=== PATIENT | male | born 1930 | race Caucasian/White ===

== ENCOUNTER 2016-12-16 11:20 | Inpatient (IN) | payer OTHER ==
[~2016-12-16] VITALS: Ht 180.3 cm; Wt 68.0 kg
[~2016-12-16 11:20] MED LIST: ALBU8.5H3 INH; ASPI81TA3 PO; BUME1TAB18 PO; CARV3.1260 PO; CLOP75TA4 PO; FURO-110 PO; LOSA25TA5 PO; METF500T4 PO; PANT40TA3 PO; POTA10TA18 PO; PRAV80TA27 PO
[2016-12-16] MEDS ORDERED: SOD CHLORIDE 0.9% 1,000 ML IV STA (11:37)
--- NOTE | 2016-12-16 12:00 | RADRPT ---
PROCEDURE: XR Chest. CLINICAL INDICATION: Syncope. Dyspnea. TECHNIQUE: Single frontal chest x-ray. COMPARISON: 06/07/2016 FINDINGS: The lungs are clear of acute infiltrates, edema, effusions, or masses. Calcific atherosclerosis of t he aorta is present.. The cardiomediastinal silhouette is unremarkable. The osseous structures are intact. IMPRESSION: No acute cardiopulmonary disease. RPTAT: QQ .Cipriano Holland MD, MD Date Time Electronically viewed and signed by .Cipriano Holland MD, on 12/16/2016 11:59 .L/
[2016-12-16 12:33] LABS: ADD SCAN DIFF NO
[2016-12-16 12:35] LABS: BASOPHILS % 0.3 % (0.0-2.0); EOSINOPHILS # 0.2 10^3/ul (0.0-0.5); EOSINOPHILS % 1.5 % (0.0-7.0); HEMATOCRIT 32.6 % (42.0-52.0); HEMOGLOBIN 9.8 g/dl (14.0-18.0); LYMPHOCYTES % 9.1 % (15.0-51.0); MEAN CORPUSCULAR HEMOGLOBIN 23.5 pg (29.0-33.0); MEAN CORPUSCULAR HGB CONC 30.1 g/dl (32.0-37.0); MEAN CORPUSCULAR VOLUME 78.2 fl (82.0-101.0); MONOCYTES % 9.1 % (0.0-11.0); NEUTROPHILS % 79.6 % (39.0-77.0); PLATELET COUNT 260 10^3/UL (140-415); RED BLOOD COUNT 4.17 10^6/ul (4.70-6.10); RED CELL DISTRIBUTION WIDTH 17.2 % (11.5-14.5); WHITE BLOOD COUNT 11.3 10^3/ul (4.8-10.8)
[2016-12-16 12:36] LABS: ADD UMIC NO; URINE BILIRUBIN (Dip) NEGATIVE (NEGATIVE); URINE BLOOD (Dip) NEGATIVE (NEGATIVE); URINE COLOR YELLOW (YELLOW); URINE GLUCOSE (Dip) NEGATIVE (NEGATIVE); URINE KETONES (Dip) NEGATIVE (NEGATIVE); URINE LEUKOCYTE ESTERASE (Dip) NEGATIVE (NEGATIVE); URINE NITRITE (Dip) NEGATIVE (NEGATIVE); URINE TOTAL PROTEIN (Dip) NEGATIVE (NEGATIVE); URINE UROBILINOGEN (Dip) 0.2 E.U./dL (0.1-1.0)
[2016-12-16 12:52] LABS: INR 1.03; PROTIME 13.5 Sec (12.2-14.2); PT RATIO 1.1
[2016-12-16 12:53] LABS: PARTIAL THROMBOPLASTIN TIME 25.7 Sec (25.0-35.0)
[2016-12-16 13:14] LABS: ANION GAP 15 (8-16); BLOOD UREA NITROGEN 40 mg/dl (7-20); CALCIUM 9.4 mg/dl (8.4-10.2); CARBON DIOXIDE 27 mmol/L (21-31); CHLORIDE 105 mmol/L (97-110); GLUCOSE 124 mg/dl (70-220); POTASSIUM 4.4 mmol/L (3.5-5.1); SODIUM 143 mmol/L (135-144)
--- NOTE | 2016-12-16 13:18 | RADRPT ---
PROCEDURE: CT Brain without contrast. CLINICAL INDICATION: Syncope TECHNIQUE: Routine CT scan of the brain was performed on a high resolution multi detector scanner without intravenous contrast. One or more of the following dose reduction techniques were used: Auto mated exposure control; Adjustment of the mA and/or kV according to patient size; Use of iterative r econstruction technique. CTDI = 43 mGy. DLP = 720 mGy-cm. COMPARISON: No prior relevant examinations are available for comparison. FINDINGS: Hemorrhage: No evidence of intracranial hemorrhage. Acute ischemic changes: No evidence of acute ischemic changes. Mass effect/Midline shift: None. Parenchymal volume: Moderate central parenchymal volume loss is evident. Ventricular system: Concordant with parenchymal volume. Chronic changes: 4 mm low attenuation focus involving the left internal capsule likely representing a small chronic lacunar infarct. There are numerous and confluent areas of significant low attenuat ion change within the supratentorial white matter most compatible with severe chronic microvascular ischemic changes. Atherosclerotic calcifications of the cavernous portions of both internal carotid arteries are prese nt. Extracranial soft tissues: Unremarkable. Calvarium: No fractures. Paranasal sinuses: Visualized paranasal sinuses are clear. Mastoid air cells: Visualized mastoid air cells are clear. IMPRESSION: No acute intracranial abnormalities. Severe chronic-appearing microvascular ischemic changes of the supratentorial white matter with smal l chronic appearing lacunar infarct of the left basal ganglia. RPTAT: AADD .Dominick Mednez MD, Date Time Electronically viewed and signed by .Dominick Mendez MD, MD on 12/16/2016 13:17 .B/
[2016-12-16 13:27] LABS: TROPONIN-I < 0.012 ng/ml (0.00-0.12)
--- NOTE | 2016-12-16 13:35 | RADRPT ---
PROCEDURE: CT scan of the cervical spine without intravenous contrast. CLINICAL INDICATION: History of multiple falls, neck pain, anticoagulated. TECHNIQUE: Routine CT scan of the cervical spine was performed without intravenous contrast on a h igh-resolution multi detector scanner. Vertebral level counting reference is made to the craniocervi dominic junction. Images and image data are available for procedural planning and localization purposes. One or more of the following dose reduction techniques were used: Automated exposure control; Adjus tment of the mA and/or kV according to patient size; Use of iterative reconstruction technique. CTDI = 22 mGy. DLP = 129 mGy-cm. COMPARISON: None. FINDINGS: Craniocervical junction: Within normal limits. Alignment: Mild straightening of the cervical lordosis. Cervical vertebral bodies: Height is maintained. No significant endplate changes are seen. Increase d attenuation of the ventral epidural space at the C1-C2 level measuring 5 mm AP and 22 cm cc appear s to be a small epidural hematoma which does not produce any significant mass effect on the central canal. No prevertebral soft tissue swelling. Evaluation of the individual levels demonstrates: C2-C3: Mild loss of disk height with 1 mm central disk protrusion. Asymmetric uncovertebral and fac et hypertrophy are present more prominent on the left. Central canal is patent. Both neural forame n are patent. C3-C4: Moderate loss of disk height with 1 mm broad-based dorsal disk osteophyte. Asymmetric uncove rtebral and facet hypertrophy are present more prominent on the left. Central canal and right neura l foramen are patent. Mild stenosis of the left neural foramen. C4-C5: Moderate loss of disk height with 1 mm dorsal disk osteophyte complex. Asymmetric left-sided uncovertebral and facet hypertrophy. Central canal and right neural foramen are patent. Moderate stenosis of the left neural foramen. C5-C6: Severe loss of disk height with less than 1 mm broad-based dorsal disk osteophyte complex. M ild left-sided asymmetric uncovertebral and facet hypertrophy. Central canal and right neural concetta en are patent. Minimal narrowing of the left neural foramen. C6-C7: Moderate loss of disk height with 1 mm dorsal disk osteophyte complex. Asymmetric left-sided uncovertebral and facet hypertrophy. Central canal and right neural foramen are patent. Minimal n arrowing of the left neural foramen. Paraspinous musculature: Within normal limits. Visualized cervical soft tissues: Mild atherosclerotic changes of both internal carotid arteries. IMPRESSION: No evidence of displaced cervical fracture or vertebral body subluxation. Thickening of the ventral epidural space at the C1-C2 level of increased density compatible with a s mall epidural hematoma measuring 5 mm AP by 22 mm cc. There is no definite underlying fracture seen . This does not produce any significant mass effect on the spinal cord. Chronic-appearing multilevel cervical spondylosis without significant central canal or neural forami nal stenoses. Results were discussed with Dr. Blanco by telephone at 1330 hours on 12/16/[address] Dominick krugre RPTAT: AADD .Dominick Mendez MD, MD Date Time Electronically viewed and signed by .Dominick Mendez MD, on 12/16/2016 13:35 .B/
--- NOTE | 2016-12-16 13:42 | RADRPT ---
PROCEDURE: XR Foot. CLINICAL INDICATION: Right foot pain TECHNIQUE: AP, lateral, and oblique views of the right foot are available for review. COMPARISON: None available FINDINGS: The osseous structures, articular spaces, and surrounding soft tissues are intact. No acute fractur e or dislocation is seen. No radiopaque foreign body is identified. Bony mineralization is normal. Calcific atherosclerosis of the posterior tibial artery is present. IMPRESSION: 1. Unremarkable right foot x-ray series. RPTAT: QQ .Cipriano Holland MD, Date Time Electronically viewed and signed by .Cipriano Holland MD, on 12/16/2016 13:41 .L/
--- NOTE | 2016-12-16 13:48 | RADRPT ---
PROCEDURE: XR Right third finger CLINICAL INDICATION: trauma TECHNIQUE: AP, oblique and lateral views of the right third finger were obtained. COMPARISON: No prior studies are available for comparison. FINDINGS: There is a nondisplaced fracture at the base of the third middle phalanx, volar surface. Degenerative changes are present with associated joint space narrowing along the second and third DI Ps and PIP joints. Bone mineralization is normal. No significant soft tissue swelling is seen. IMPRESSION: Nondisplaced fracture along the volar surface of the base of the third middle phalanx with intra-art icular extension. RPTAT: HSM .Toy Rick MD, MD Date Time Electronically viewed and signed by .Toy Rick MD, on 12/16/2016 13:48 .M/
--- NOTE | 2016-12-16 13:51 | RADRPT ---
PROCEDURE: XR Pelvis. CLINICAL INDICATION: Pain TECHNIQUE: Single AP view of the pelvis. COMPARISON: None FINDINGS: There are no fractures or dislocations. There are no arthritic, neoplastic or inflammatory changes. The osseous mineralization is normal. There are surgical christiano overlying the right femoral head. The sacroiliac joints are normal. IMPRESSION: No acute pelvic bony abnormality identified. RPTAT: PP .Toy Rick MD, MD Date Time Electronically viewed and signed by .Toy Rick MD, on 12/16/2016 13:51 .M/
[2016-12-16] MEDS ORDERED: ONDANSETRON 4 MG INJ IV PRN ×2 (14:30→22:30)
[2016-12-16] MEDS ORDERED: ACETAMINOPHEN 325 MG TAB PO PRN ×2 (14:30→22:30)
--- NOTE | 2016-12-16 16:12 | ERA ---
ER Documentation Chief Complaint Date/Time DATE: 12/16/16 TIME: 16:02 Chief Complaint 3 syncopal episodes last night, bodysoreness, lacs on forhead HPI 86-year-old male presents emergency room with head injuries and body soreness after he had 3 episodes of syncope last night. He lives alone and found himself picking him up from the floor without remembering how he had gotten there. This happened multiple times and the patient noticed that each time he had a new laceration it was bleeding on his face or head. He did not have any chest pain and does not know if he felt lightheaded at the time. He denies any chest pain fevers or chills. Has not fainted yet today. He has no seizure history. ROS All systems reviewed and are negative except as per history of present illness. Medications Home Meds Active Scripts Bumetanide* (Bumetanide*) 1 Mg Tablet, 1 MG PO DAILY for 7 Days, TAB Prov:BILLY TORRES MD 06/07/16 Aspirin (Aspirin) 81 Mg Chew, 81 MG PO DAILY, #60 Prov:Thomas Stoddard DO 05/14/14 Furosemide* (Lasix*) 20 Mg Tab, 20 MG PO DAILY, #30 Prov:MICHELE GARCIA MD 04/18/14 Reported Medications Metformin Hcl* (Metformin Hcl*) 500 Mg Tablet, 500 MG PO WITH BREAKFAST, #30 TAB 06/07/16 Losartan Potassium* (Losartan Potassium*) 25 Mg Tablet, 25 MG PO DAILY, TAB 06/07/16 Potassium Citrate* (Potassium Citrate* ER) 10 Meq Tablet.sa, 10 MEQ PO DAILY, TAB.SA 06/07/16 Albuterol Sulfate* (Proair HFA*) 8.5 Gm Hfa.aer.ad, 1-2 PUFF INH Q4-6 HOURS Y for WHEEZING, INH 04/17/14 Pravastatin Sodium* (Pravastatin Sodium*) 80 Mg Tablet, 80 MG PO HS, TAB 04/11/14 Clopidogrel Bisulfate* (Clopidogrel Bisulfate*) 75 Mg Tablet, 75 MG PO DAILY, TAB 04/11/14 Carvedilol* (Carvedilol*) 3.125 Mg Tablet, 3.125 MG PO BID, TAB 04/11/14 Pantoprazole* (Protonix*) 40 Mg Tablet.dr, 40 MG PO DAILY, TAB 04/11/14 Allergies Allergies: Coded Allergies: No Known Allergies (Verified Allergy, Mild, 06/07/16) PMhx/Soc History of Surgery: Yes (HERNIA,T&A, 2ANGIOPLASTIES) Anesthesia Reaction: No Hx Neurological Disorder: No Hx Respiratory Disorders: Yes (ASTHMA) Hx Cardiac Disorders: Yes (W[place] w/stents) Hx Psychiatric Problems: No Hx Miscellaneous Medical Probl: Yes (HTN, DM) Hx Alcohol Use: Yes Hx Substance Use: No Hx Tobacco Use: No Smoking Status: Never smoker Physical Exam Vitals Vital Signs Date Time Temp Pulse Resp B/P Pulse Ox O2 Delivery O2 Flow Rate FiO2 12/16/16 16:03 75 20 128/57 97 Room Air 12/16/16 12:42 70 15 140/59 96 Room Air 12/16/16 12:42 71 15 137/97 98 Room Air 12/16/16 12:41 72 19 125/61 98 Room Air 12/16/16 12:00 85 21 125/66 96 Room Air 12/16/16 11:23 96 20 144/66 96 Physical Exam Const: [] No distress Head: Atraumatic Eyes: Normal Conjunctiva ENT: Normal External Ears, Nose and Mouth. Neck: Full range of motion..~ No meningismus. Resp: Clear to auscultation bilaterally Cardio: Regular rate and rhythm, no murmurs Abd: Soft, non tender, non distended. Normal bowel sounds Skin: No petechiae or rashes Back: No midline or flank tenderness Ext: No cyanosis, or edema, 5 out of 5 strength all extremities, mild tenderness to toes of right foot, mild tenderness to right middle finger without deformity, distal pulses intact all 4 extremities Neur: Awake and alert and oriented 3, cranial 2 through 12 intact, cerebellar finger-nose normal. Gait not tested Psych: Normal Mood and Affect Result Diagram: 12/16/16 1220 12/16/16 1220 Results 24 hrs Laboratory Tests Test 12/16/16 12:05 12/16/16 12:20 Urine Color YELLOW Urine Clarity CLEAR Urine pH 5.5 Urine Specific [place] 1.020 Urine Ketones NEGATIVE Urine Nitrite NEGATIVE Urine Bilirubin NEGATIVE Urine Urobilinogen 0.2 E.U./dL Urine Leukocyte Esterase NEGATIVE Urine Hemoglobin NEGATIVE Urine Glucose NEGATIVE% Urine Total Protein NEGATIVE White Blood Count 11.310^3/ul Red Blood Count 4.1710^6/ul Hemoglobin 9.8g/dl Hematocrit 32.6% Mean Corpuscular Volume 78.2fl Mean Corpuscular Hemoglobin 23.5pg Mean Corpuscular Hemoglobin Concent 30.1g/dl Red Cell Distribution Width 17.2% Platelet Count 36968^3/UL Mean Platelet Volume 11.0fl Neutrophils % 79.6% Lymphocytes % 9.1% Monocytes % 9.1% Eosinophils % 1.5% Basophils % 0.3% Nucleated Red Blood Cells % 0.0/100WBC Neutrophils # 9.010^3/ul Lymphocytes # 1.010^3/ul Monocytes # 1.010^3/ul Eosinophils # 0.210^3/ul Basophils # 0.010^3/ul Nucleated Red Blood Cells # 0.010^3/ul Prothrombin Time 13.5Sec Prothrombin Time Ratio 1.1 INR International Normalized Ratio 1.03 Activated Partial Thromboplast Time 25.7Sec Sodium Level 143mmol/L Potassium Level 4.4mmol/L Chloride Level 105mmol/L Carbon Dioxide Level 27mmol/L Anion Gap 15 Blood Urea Nitrogen 40mg/dl Creatinine 1.40mg/dl Glucose Level 124mg/dl Calcium Level 9.4mg/dl Troponin I < 0.012ng/ml Current Medications Medications (Trade) Dose Ordered Sig/Gabby Route PRN Reason Start Time Stop Time Status Last Admin Dose Admin Sodium Chloride (NS) 1,000 ml @ 1,000 mls/hr Q1H STAT IV 12/16/16 11:37 12/16/16 12:36 DC 12/16/16 12:14 Ondansetron HCl (Zofran Inj) 4 mg ER BRIDGE PRN IV NAUSEA AND/OR VOMITING 12/16/16 14:30 12/17/16 14:29 Acetaminophen (Tylenol Tab) 650 mg ER BRIDGE PRN PO MILD PAIN/FEVER 12/16/16 14:30 12/17/16 14:29 Procedures/MDM Multiple syncopal episodes concerning for possible arrhythmia in 86-year-old male. Also has cervical epidural hematoma on blood thinners. Fracture of right middle finger. Also very important is that patient was not orthostatic but when checking orthostatic vital signs the nurse noticed that when the patient was standing he started to throw multiple PVCs frequently which he did not have when he was sitting and laying down. This makes cardiac arrhythmia causing the syncope much more likely. Spoke with Dr. Melgar, neurosurgeon, who will be following the patient and recommended MRI. 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 He was hydrated with normal saline. Patient has small facial facial fractures that are out of the window for suturing currently. Dressings was placed. mild leukocytosis without signs of infection. Patient's low hemoglobin is consistent with prior values. His creatinine is slightly elevated indicating possible dehydration. Spoke with Dr. King will be admitting the patient to telemetry for further monitoring. EKG interpretation: Normal sinus rhythm rate of 78, normal axis, lateral T-wave inversions suspicious for ischemia. residential monitor interpretation: Normal sinus rhythm with occasional PVCs. No other arrhythmias CT head interpretation: I see no acute process. I see no hemorrhage, no mass- effect or midline shift no skull fracture CT C-spine interpretation: 5 mm x 22 mm epidural hematoma. No fracture dislocation subluxation. Chest x-ray interpretation: I see no acute process. I see no widened mediastinum, no pneumothorax, no infiltrates, no fracture Pelvis x-ray interpretation: I see no fracture dislocation or soft tissue injuries Right middle finger x-ray: Nondisplaced fracture of right middle finger Right foot x-ray interpretation: No fracture dislocation. Normal right foot x- ray Departure Diagnosis: Primary Impression: Syncope Additional Impressions: Head injury Epidural hematoma Leukocytosis Renal insufficiency Condition: Serious JEREMIESRIKANTHGRAYSONRAVEN LOCKE Dec 16, 2016 16:12
[2016-12-16 17:30] VITALS: PULSE 72
[2016-12-16 18:01] VITALS: BP 137/86; RESP 18
[2016-12-16 20:00] VITALS: BP 121/63; RESP 17
[2016-12-16 20:04] VITALS: PULSE 75
--- NOTE | 2016-12-16 21:52 | CONS ---
Date/Time of Note Date/Time of Note DATE: 12/16/16 TIME: 21:46 Assessment/Plan Assessment/Plan Problems: (1) Epidural hematoma Status: Acute Additional Assessment/Plan The patient has a hyperdensity in the extradural space that is possible an epidural hematoma. He has a hx of cardiac stent and is on ASA. This should be held until the nature of the presence of epidural hematoma is ruled out. Currently the patient is asymptomatic and not myelopathic; there is consequently no intervention indicated at the present time. An MRI of the cervical spine has been re-ordered STAT to better clarify the nature of the collection. Consultation Date/Type/Reason Admit Date/Time Dec 16, 2016 at 14:23 Date of Consultation: Dec 16, 2016 Type of Consultation: Neurosurgery Reason for Consultation Cervical epidural hematoma Hx of Present Illness The patient is a 86 year old male s/p syncope and GLF; he presented with abrasions to the head and face and was evaluated per protocol with a CT of the head and cervical spine. This shows a possible ventral extradural fluid collection, 5mm in thickness in the cervical spine, c/w an epidural hematoma. The patient has no neurologic complaints. Social History Smoking Status: Never smoker Exam/Review of Systems Vital Signs Vitals Vital Signs Date Time Temp Pulse Resp B/P Pulse Ox O2 Delivery O2 Flow Rate FiO2 12/16/16 20:00 98.4 87 17 121/63 93 12/16/16 16:03 Room Air Exam On neurologic examination the patient is awake and alert. He follows commands briskly. He moves all extremities 5/5. He denies any sensory deficit. His reflexes are 1-2+. There is no clonus. Cranial nerve exam is wnl, excpet for diminished hearing (the patient wears hearing aids, NOT cochlear implants as is written in error elsewhere in the chart). HEENT: positive facial abrasions, no valdez's sign, no hemotympanum EXTREMITIES: He has well developed normal appearing extremities with normal tone , no atrophy, and no rigidity. Results Result Diagram: 12/16/16 1220 12/16/16 1220 Results 24 hrs Laboratory Tests Test 12/16/16 12:05 12/16/16 12:20 Urine Color YELLOW Urine Clarity CLEAR Urine pH 5.5 Urine Specific [place] 1.020 Urine Ketones NEGATIVE Urine Nitrite NEGATIVE Urine Bilirubin NEGATIVE Urine Urobilinogen 0.2 E.U./dL Urine Leukocyte Esterase NEGATIVE Urine Hemoglobin NEGATIVE Urine Glucose NEGATIVE Urine Total Protein NEGATIVE White Blood Count 11.3 #H Red Blood Count 4.17 L Hemoglobin 9.8 L Hematocrit 32.6 L Mean Corpuscular Volume 78.2 L Mean Corpuscular Hemoglobin 23.5 L Mean Corpuscular Hemoglobin Concent 30.1 L Red Cell Distribution Width 17.2 H Platelet Count 260 Mean Platelet Volume 11.0 #H Neutrophils % 79.6 H Lymphocytes % 9.1 L Monocytes % 9.1 Eosinophils % 1.5 Basophils % 0.3 Nucleated Red Blood Cells % 0.0 Neutrophils # 9.0 H Lymphocytes # 1.0 Monocytes # 1.0 H Eosinophils # 0.2 Basophils # 0.0 Nucleated Red Blood Cells # 0.0 Prothrombin Time 13.5 Prothrombin Time Ratio 1.1 INR International Normalized Ratio 1.03 Activated Partial Thromboplast Time 25.7 Sodium Level 143 Potassium Level 4.4 Chloride Level 105 Carbon Dioxide Level 27 Anion Gap 15 Blood Urea Nitrogen 40 H Creatinine 1.40 H Glucose Level 124 Calcium Level 9.4 Troponin I < 0.012 TIM TALAMANTES MD Dec 16, 2016 21:52
[2016-12-16] MEDS ORDERED: DOCUSATE SODIUM 100 MG CAP PO PRN (22:30)
[2016-12-16] MEDS ORDERED: ZOLPIDEM 5 MG TAB PO PRN (22:30)
[2016-12-16] MEDS ORDERED: NACL 0.9% 3 ML SYG IV SCH (22:30)
[2016-12-16] MEDS ORDERED: HYDROCODONE/APAP (5/325) TAB PO PRN (22:30)
[2016-12-16] MEDS ORDERED: BISACODYL 10 MG SUPP PR PRN (22:30)
[2016-12-16 23:30] VITALS: Ht 180.3 cm; Wt 68.0 kg
[2016-12-16] MEDS ORDERED: ALBUTEROL 18 GM INHALER INH PRN (23:45)
[2016-12-17] VITALS (12 sets, daily range): BP systolic 116–156; BP diastolic 56–71; PULSE 74–93; RESP 18
[2016-12-17] MEDS ORDERED: ALBUTEROL HFA 8 GM INHALER INH PRN
[2016-12-17] MEDS ORDERED: GLUCAGON 1 MG INJ IM PRN (00:30)
[2016-12-17] MEDS ORDERED: GLUCOSE GEL 15 GRAM TUBE PO PRN ×2 (00:30)
[2016-12-17] MEDS ORDERED: DEXTROSE 50% 50 ML SYRINGE IV PRN ×2 (00:30)
[2016-12-17] MEDS ORDERED: GLUCOSE GEL 15 GRAM TUBE BUCCAL PRN (00:30)
[2016-12-17] MEDS ORDERED: ACCU-CHEK XX SCH (02:00)
--- NOTE | 2016-12-17 05:13 | RADRPT ---
PROCEDURE: MR Cervical Spine. CLINICAL INDICATION: Trauma with neck pain and CT suggesting ventral epidural hematoma at C1-2. TECHNIQUE: Sagittal T1, T2, and fat-saturated T2, axial T2 and gradient images without contrast. COMPARISON: CT from 12/16/2016 FINDINGS: There is slight reversal of cervical lordosis which may be due to spasm or positioning. Minimal C6- 7 retrolisthesis is seen. Alignment otherwise anatomic. Cervical vertebral body heights are relati vely well preserved. There is multilevel disk desiccation with disk space narrowing most pronounced at C5-6. There is minimal loss of anterior vertebral body height of T1-T4 without definite vertebr al body edema, presumably chronic. This could involves the superior endplates. No prevertebral soft tissue edema is seen. No marked muscular edema is seen. Inhomogeneous fat saturation is noted post eriorly on the fat-saturated T2-weighted images. The smoothly marginated process posterior to the de ns seen on CT is identified. By MRI, this appears most consistent with pannus formation rather than acute epidural hematoma. The study is somewhat limited by patient motion. The visualized cervical cord is normal in signal. No gross abnormality of the visualized posterior fossa. C2-3: Minimal posterior disk protrusion without extrusion. No evidence for canal or significant for aminal narrowing.. C3-4: Minimal posterior disk osteophyte complex with hypertrophic changes causing slight left forami nal narrowing. No significant canal stenosis.. C4-5: Minimal posterior disk osteophyte complex with minimal left foraminal narrowing. No right for aminal narrowing or canal stenosis.. C5-6: Minimal posterior disk osteophyte complex with minimal foraminal narrowing. No canal stenosis . C6-7: Small posterior disk osteophyte complex with moderately tight bilateral foraminal narrowing. No alessandro canal stenosis.. C7-T1: No evidence for disk herniation, canal stenosis, or significant foraminal narrowing.. 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 No definite epidural hematoma. Multilevel cervical spondylosis w ith disk osteophyte complexes and multilevel foraminal narrowing as detailed above. Small probable old minimal superior endplate depressions of the upper thoracic spine. RPTAT: HLBE Chelly Greenberg, Physician Date Time Electronically viewed and signed by Chelly Greenberg, Physician on 12/17/2016 05:12 LE/
[2016-12-17] MEDS ORDERED: PANTOPRAZOLE (EC) 40 MG TAB PO SCH ×2 (06:00)
[2016-12-17 06:57] LABS: ADD SCAN DIFF NO
[2016-12-17 07:06] LABS: BASOPHILS % 0.5 % (0.0-2.0); EOSINOPHILS # 0.2 10^3/ul (0.0-0.5); EOSINOPHILS % 2.2 % (0.0-7.0); HEMATOCRIT 30.5 % (42.0-52.0); HEMOGLOBIN 8.9 g/dl (14.0-18.0); LYMPHOCYTES # 1.4 10^3/ul (0.8-2.9); LYMPHOCYTES % 17.1 % (15.0-51.0); MEAN CORPUSCULAR HEMOGLOBIN 23.2 pg (29.0-33.0); MEAN CORPUSCULAR HGB CONC 29.2 g/dl (32.0-37.0); MEAN CORPUSCULAR VOLUME 79.6 fl (82.0-101.0); MEAN PLATELET VOLUME 10.8 fl (7.4-10.4); MONOCYTES % 11.5 % (0.0-11.0); NEUTROPHIL # 5.7 10^3/ul (1.6-7.5); NEUTROPHILS % 68.5 % (39.0-77.0); PLATELET COUNT 227 10^3/UL (140-415); RED BLOOD COUNT 3.83 10^6/ul (4.70-6.10); RED CELL DISTRIBUTION WIDTH 17.2 % (11.5-14.5); WHITE BLOOD COUNT 8.3 10^3/ul (4.8-10.8)
[2016-12-17 07:22] LABS: CREATININE 1.05 mg/dl (0.61-1.24); POTASSIUM 3.7 mmol/L (3.5-5.1)
[2016-12-17] MEDS: INSULIN ASPART [NOVOLOG] 3 ML PEN SC SCH ×2 (07:55→12:00)
[2016-12-17] MEDS: metFORMIN 500 MG TAB PO SCH ×2 (07:55→08:37)
[2016-12-17] MEDS ORDERED: BUMETANIDE 1 MG TAB PO SCH (09:00)
[2016-12-17] MEDS ORDERED: LOSARTAN 25 MG TAB PO SCH (09:00)
[2016-12-17 13:30] LABS: CK-MB 0.97 ng/ml (0.0-2.4); TROPONIN-I 0.016 ng/ml (0.00-0.12)
--- NOTE | 2016-12-17 14:02 | HP ---
DATE OF ADMISSION: 12/16/2016 ADMITTING PHYSICIAN: Dr. King CHIEF COMPLAINT ON ADMISSION: Status post syncope and fall over. HISTORY OF PRESENT ILLNESS: This is an 86-year-old male with a history of coronary artery disease, ischemic cardiomyopathy, diabetes mellitus, congestive heart failure, systolic dysfunction with ejec tion fraction of 35% per echocardiogram in 2013, hypertension, hyperlipidemia who was brought into t ER after episodes of syncope at home. According to the patient, approximately 2 days ago therefo re on Saturday night he went out with some friends, he had 2 peyman's. Apparently they were fairl y strong. Afterwards he had some coffee and was able to drive home. At home, while getting ready t o go to bed apparently the patient did masturbate twice and was fairly vigorous the first time aroun d, according to a friend who was at the bedside and after the second when he was done, he decided to go brush his teeth. On his way going to brush his teeth he had his first syncopal episode. The toño zhou reports that he was in the dressing area, he started feeling odd, what he described as likely some dizziness, light headedness and loss of consciousness. When he regained consciousness he was o n the floor. He tried to get up and again lost consciousness again. After the second time, he manag ed to get up and go to bed. He was not feeling that bad. He did not even realize he had traumatized his head. Therefore he slept through the night and Saturday morning when he woke up he saw the bruise s on his face. He called his friend, who is at the bedside who called his primary care physician an swering service and the physician on-call asked him to go to the emergency department. In the emerg ency department, there is a reported patient having some episodes of nonsustained V-tachs, on the mo nitored review he maybe had a couple of beats, but otherwise has remained stable. His blood pressur e has remained stable. These episodes are quite often nonsustained V-tachs, were very short and he has been asymptomatic here. In his ER workup, he had a CT of the cervical spine. There was a quest ion of epidural hematoma. Therefore, Neurosurgery was called. Dr. Melgar saw the patient who was n eurologically stable. He ordered an MRI of the cervical spine which does not show any epidural glenroy brigido. The patient is currently on telemetry being monitored on telemetry. A 2D echocardiogram has been ordered, repeat cardiac enzyme will be done this morning. I will discuss finding with his card iologist and likely he will be discharged home with outpatient followup with his risk prevention engineer [facility] management of his cardiac disease. He is euvolemic on this admission, no signs of volume overload . No signs of congestive heart failure exacerbation. ALLERGIES: NO KNOWN ALLERGIES. PAST MEDICAL HISTORY: 1. Ischemic cardiomyopathy, ejection fraction 35% as of 2013. 2. Coronary artery disease, status post PTCA and stent placement. 3. Hypertension. 4. Hyperlipidemia. 5. Diabetes mellitus. 6. Reported skin cancer on his nose for which he is due for a procedure soon. PAST SURGICAL HISTORY: 1. Status post PTCA with stent placement approximately 4 years ago according to the patient. 2. Status post skin lesion on his nose which was biopsied a few weeks ago. REVIEW OF SYSTEMS: As per HPI. SOCIAL HISTORY: The patient lives alone currently. He lost his partner, named Salo, approximately 5 years ago. He quit smoking approximately 30 years ago. He does drink alcohol regularly. He drinks 2 glasses of wine a day and also a glass of vodka tonic a day. OUTPATIENT MEDICATIONS: 1. ProAir HFA 1 to 2 puffs inhaled every 6 hours as needed for wheezing. 2. Plavix 75 mg daily. 3. Carvedilol 3.125 mg p.o. b.i.d. 4. Losartan 25 mg p.o. daily. 5. Pravastatin 80 mg p.o. at bedtime. 6. Aspirin 81 mg daily. 7. Bumex 1 mg p.o. daily. 8. Lasix 20 mg daily. 9. Potassium citrate 10 mEq daily. 10. Protonix 40 mg daily. 11. Metformin 500 mg p.o. q. breakfast. PHYSICAL EXAMINATION: VITAL SIGNS: Temperature is 98.0, heart rate of 78, sinus rhythm. Patient had a couple of episodes of nonsustained VT after approximately 2 to 3 beats at most. Respiratory rate of 18, blood pressur e 126/61. The patient is satting 96% on room air, orthostatics are pending. GENERAL: He is alert and oriented x4. He is in no acute distress currently. His mental status is baseline. HEENT: Pupils are equally round and reactive to light. Extraocular muscles are intact. Anicteric sclerae. NECK: No JVD, no thyromegaly noted. He does have some facial lacerations that are all superficial. No further bruising. HEART: Regular rate and rhythm. No murmur, rubs, or gallops. LUNGS: Clear to auscultation bilaterally. ABDOMEN: Soft, nontender, nondistended. Bowel sounds are present. EXTREMITIES: No edema, clubbing or cyanosis. NEUROLOGIC: Grossly intact, moving all 4 extremities. Able to stand. Physical therapy evaluation i s pending. LABORATORY DATA: White blood cell count 8.3, hemoglobin 8.9, hematocrit 30.5, platelet count of 227 . Chemistry with a sodium of 140, potassium 3.7, chloride 104, bicarbonate 29, BUN of 31, creatinin e 1.05. Glucose of 93 and 112. Troponin less than 0.012 and calcium 9.0. INR 1.03, PT 13.5, PTT 25 .7. Urine analysis is completely negative. RADIOLOGICAL DATA: The patient had a trauma series when he came to the emergency department. 1. Pelvic x-ray shows no acute fractures. 2. Foot x-ray right foot shows no acute fractures. 3. Right third finger x-ray shows a nondisplaced fracture along the volar surface of the base of th e 3rd middle phalanx with intraarticular extension. 4. CT of the cervical spine did show a possible epidural hematoma but no signs of fractures. This is followed by MRI of the cervical spine which showed pannus formation posterior CO2. No definite ep idural hematoma, multiple cervical spondylosis with disk osteophyte complex and multilevel foraminal narrowing as detailed. 5. Chest x-ray shows no acute cardiopulmonary disease. 6. 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 ELECTROCARDIOGRAM: Showed a normal sinus rhythm, no acute ST or T-wave abnormalities. ASSESSMENT AND PLAN: This is an 86-year-old male with: 1. Syncopal episodes x2. This is likely vasovagal given the activity the patient was doing prior to the event. Will check his orthostatics here. His cardiac rhythm has been stable. He had a couple episodes of very short nonsustained V-tach, just a few beats with hemodynamic stability and asymptom atic per patient. Will check his magnesium level this morning. His old electrolytes are within monae l. He is back on his Coreg and all other medications. I did order a 2-D echocardiogram to reevalua te his ejection fraction and I will discuss the case with his primary risk prevention engineer, Dr. Bautista with plan to discharge the patient with outpatient cardiology followup if we need for inpatient graeme luation. Physical therapy evaluation pending. 2. Questionable epidural hematoma on cervical CT. Again the MRI does not show any signs of it. He d oes have cervical stenosis and chronic changes, but nothing that needs surgical intervention. There fore, we will resume his antiplatelet therapy. 3. Coronary artery disease, status post stent in the past. No chest pain, no symptoms there. Cardi ac enzymes negative. EKG stable. We will resume his antiplatelet therapy. 4. Ischemic cardiomyopathy with known congestive heart failure, systolic, chronic. He is euvolemic currently, resume outpatient regimen and follow up with cardiology. 5. Diabetes mellitus. Will check a hemoglobin A1c and patient is to resume his metformin at home. 6. Hypertension. Continue current medications. Will check orthostatic blood pressure also. 7. Nondisplaced fracture along the volar surface of the base of the right third middle phalanx. Th e patient currently is completely asymptomatic. Therefore, will check with orthopedic surgery if an ything needs to be done other than just a splint if needed. 8. Skin lesion on the nose which is chronic and being worked up as an outpatient. Currently, charly florence is due for procedure in a couple weeks as an outpatient. 9. Prophylaxis. Sequential compression devices to lower extremity for DVT prophylaxis. Protonix f or GI prophylaxis. DISPOSITION: Physical therapy to see patient. We will discuss case with cardiology along with neuro surgery. Resume antiplatelet therapy and if the patient is stable, probable discharge later today. Dictated By: LEONARD NAZARIO/BRAYAN Conf#: [id number] DID#: [id number]
--- NOTE | 2016-12-17 14:06 | PDOCDIS ---
Discharge Instructions CONDITION Patient Condition: Stable HOME CARE INSTRUCTIONS: Special Diet: DIABETIC, LOW FAT, LOW JOSE ELIAS ACTIVITY: Activity Restrictions: Slowly Increase Activity Avoid heavy lifting No Sexual Activity Avoid Heavy Housework FOLLOW UP/APPOINTMENTS Appointments Follow up with PCP within 1 week Follow up with Dr Bautista within 1 to 2 weeks Referral to EP, Dr Ian HERNÁNDEZ as patient needs ICD placement. Home Health RN check at home LEONARD COOLEY Dec 17, 2016 14:06
--- NOTE | 2016-12-17 14:23 | RADRPT ---
Echocardiogram Report Patient Name: AQUILES ZUNIGA Gender: Male Date: 1930 Study Date: 17-Dec-2016 Glove Tagger: Blaise Leary [facility] Physician: BOY COOLEY Quality: Good Procedures: Transthoracic echocardiogram with complete 2D, M-Mode, and doppler examination. Indications: Syncopal episodes. 2D/M Mode Doppler Measurement Value Normal Ranges Measurement Value Normal Ranges LVIDd 2D 6.2 3.5 - 5.6 cm AV Peak Edvin 1.4 m/sec LVIDs 2D 5.2 2.1 - 4.1 cm AV Peak PG 7.0 mmHg FS 2D 15.4 % LVOT Peak Edvin 0.7 m/sec LVPWd 2D 1.0 0.6 - 1.1 cm LVOT Peak PG 2.0 mmHg IVSd 2D 0.9 0.6 - 1.1 cm MV E Peak Edvin 0.5 m/sec IVS/LVPW 2D 0.9 MV A Peak Edvin 0.9 m/sec AoR Diam 2D 3.1 2.0 - 3.7 cm MV E/A 0.6 LA/Ao 2D 1 0 - 1 MV Decel Time 173 msec EDV 2D 233.0 cm3 MV E/A 0.6 ESV 2D 141.0 cm3 TR Peak Edvin 2.7 m/sec LA Dimen 2D 4.3 2.3 - 4.0 cm TR Peak PG 28.0 mmHg RVSP 31.0 mmHg Findings Left Ventricle: Normal left ventricular wall thickness. Mild enlargement of left ventricle cavity. Severe left ventricular systolic dysfunction. Ejection fraction is visually estimated at 25 %. Tissue Doppler/Mitral Doppler indices are consistent with impaired relaxation (Stage I diastolic dysfunction). Right Ventricle: Normal right ventricular size. Normal right ventricular systolic function. Left Atrium: There is mild enlargement of left atrium. Right Atrium: The right atrium is normal in size. Mitral Valve: Mitral valve leaflets appear mildly thickened. Mild mitral annular calcification. Mild mitral valve regurgitation. Aortic Valve: No significant aortic stenosis or insufficiency. Aortic cusps appear mildly calcified. Tricuspid Valve: Normal appearance of the tricuspid valve. Estimated peak PA systolic pressure 31 mmHg. There is trace tricuspid regurgitation. Pulmonic Valve: Pulmonic valve not well visualized. Pericardium: Normal pericardium with no significant pericardial effusion. Aorta: Normal aortic root. IVC: Normal size and normal respiratory collapse consistent with normal right atrial pressure. Conclusions Normal left ventricular wall thickness. Mild enlargement of left ventricle cavity. Severe left ventricular systolic dysfunction. Ejection fraction is visually estimated at 25 %. Tissue Doppler/Mitral Doppler indices are consistent with impaired relaxation (Stage I diastolic dysfunction). Normal right ventricular size. Normal right ventricular systolic function. There is mild enlargement of left atrium. The right atrium is normal in size. Mild mitral valve regurgitation. No significant valvular stenosis or regurgitation seen of remaining visualized valves. Normal pericardium with no significant pericardial effusion. Electronically Signed By: Thomas Stoddard 17-Dec-2016 14:21:49 -0700 Patient Name: AQUILES ZUNIGA Study Date: 17-Dec-[id number]
[2016-12-17] MEDS ORDERED: POTASSIUM CHLORIDE (SR) 20 MEQ TAB PO STA (15:19)
--- NOTE | 2016-12-17 15:26 | CONS ---
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 Recommendation is for ICD placement. Patient is currently refusing and wants "some time to think about it" and to be discharged home. I did discuss the risks involved and he understands but is refusing ICD placement at the current time. I would supplement potassium to maintain above 4.0, maintain magnesium above 2.0. Would increase dose of beta-kendell. Consultation Date/Type/Reason Admit Date/Time Dec 16, 2016 at 14:23 Type of Consultation: cv Reason for Consultation syncope Hx of Present Illness This is an 86-year-old male with past medical history of coronary artery disease , cardiomyopathy, hypertension who presents after an episode of syncope. Patient did have a few alcoholic beverages. He did come home and was involved in masturbation. Afterwards, patient went to the bathroom and with coming back , became lightheaded and dizzy and passed out. He is not sure if he had any palpitations. He denies any chest pain or shortness of breath. His last syncopal episode was approximately 6-7 years ago while he was in the shower. He otherwise denies exertional chest pain or shortness of breath. He is active and no limitations in activity because of shortness of breath or chest pain. Denies any fevers or chills, abdominal pain. 12 point review of systems was performed with all pertinent positives and negatives mentioned above and all else is negative Past Medical History Medical History: congestive heart failure, coronary artery disease, high cholesterol, hypertension Past Surgical History Past Surgical Hx: angioplasty Family History Significant Family History: no pertinent family hx Social History Alcohol Use: occasionally Smoking Status: Never smoker Drug Use: none Other Social History Lives at home Exam/Review of Systems Vital Signs Vitals Vital Signs Date Time Temp Pulse Resp B/P Pulse Ox O2 Delivery O2 Flow Rate FiO2 12/17/16 15:15 98.0 77 18 156/71 96 12/16/16 16:03 Room Air Intake and Output 12/16/16 12/16/16 12/17/16 15:00 23:00 07:00 Intake Total 1000 ml Output Total 375 ml 1200 ml Balance -375 ml -200 ml Exam No apparent distress Constitutional: alert, oriented Head: lacerations, normocephalic Respiratory: other (Coarse breath sounds bilaterally, no wheezing) Cardiovascular: other (S1-S2 heard), regular rate and rhythm, systolic murmur Gastrointestinal: bowel sounds, non-tender, other (No guarding), soft Extremities: other (No edema or cyanosis) Results Result Diagram: 12/17/16 0615 12/17/16 0615 Results 24 hrs Laboratory Tests Test 12/17/16 06:15 12/17/16 07:48 12/17/16 12:22 12/17/16 12:31 White Blood Count 8.3 # Red Blood Count 3.83 L Hemoglobin 8.9 L Hematocrit 30.5 L Mean Corpuscular Volume 79.6 L Mean Corpuscular Hemoglobin 23.2 L Mean Corpuscular Hemoglobin Concent 29.2 L Red Cell Distribution Width 17.2 H Platelet Count 227 Mean Platelet Volume 10.8 H Neutrophils % 68.5 Lymphocytes % 17.1 Monocytes % 11.5 H Eosinophils % 2.2 Basophils % 0.5 Nucleated Red Blood Cells % 0.0 Neutrophils # 5.7 Lymphocytes # 1.4 Monocytes # 1.0 H Eosinophils # 0.2 Basophils # 0.0 Nucleated Red Blood Cells # 0.0 Sodium Level 140 Potassium Level 3.7 Chloride Level 104 Carbon Dioxide Level 29 Anion Gap 11 Blood Urea Nitrogen 31 H Creatinine 1.05 Glucose Level 93 Calcium Level 9.0 Bedside Glucose 112 121 Magnesium Level 2.0 Creatine Kinase 196 Creatine Kinase Index 0.5 Creatinine Kinase MB (Mass) 0.97 Troponin I 0.016 Medications Medications Current Medications Ondansetron HCl (Zofran Inj) 4 mg Q6H PRN IV NAUSEA AND/OR VOMITING; Start 12/16 at 22:30 Acetaminophen (Tylenol Tab) 650 mg Q6H PRN PO PAIN LEVEL 1-3 OR FEVER; Start at 22:30 Acetaminophen/ Hydrocodone Bitart ([place] (5/325)) 1 tab Q6H PRN PO PAIN LEVEL 4 -6; Start 12/16/16 at 22:30 Zolpidem Tartrate (Ambien) 5 mg QHS PRN PO INSOMNIA; Start 12/16/16 at 22:30 Docusate Sodium (Colace) 100 mg Q12H PRN PO CONSTIPATION; Start 12/16/16 at 22: 30 Bisacodyl (Dulcolax Supp) 10 mg DAILY PRN [place] CONSTIPATION; Start 12/16/16 at 22: 30 Pantoprazole (Protonix Tab) 40 mg DAILY@06 PO Last administered on 12/17/16 05: 57; Admin Dose 40 MG; Start 12/17/16 at 06:00 Bumetanide (Bumex) 1 mg DAILY PO Last administered on 12/17/16 08:37; Admin Dose 1 MG; Start 12/17/16 at 09:00 Carvedilol (Coreg) 3.125 mg BID PO Last administered on 12/17/16 08:40; Admin Dose 3.125 MG; Start 12/17/16 at 00:00 Losartan Potassium (Cozaar) 25 mg DAILY PO Last administered on 12/17/16 08:40 ; Admin Dose 25 MG; Start 12/17/16 at 09:00 Albuterol (Ventolin Hfa) 1-2 PUFF Q4H PRN WHEEZING Q4H PRN INH WHEEZING; Start 12/16/16 at 23:45 Diagnostic Test (Pha) (Accu-Chek) 1 ea 02 XX ; Start 12/17/16 at 02:00 Atorvastatin Calcium (Lipitor) 20 mg DAILY@21 PO ; Start 12/17/16 at 21:00 Miscellaneous Information 1 ea NOTE XX ; Start 12/17/16 at 00:30 Glucose (Glutose) 15 gm Q15M PRN PO DECREASED GLUCOSE; Start 12/17/16 at 00:30 Glucose (Glutose) 22.5 gm Q15M PRN PO DECREASED GLUCOSE; Start 12/17/16 at 00:30 Dextrose (D50w Syringe) 25 ml Q15M PRN IV DECREASED GLUCOSE; Start 12/17/16 at 00:30 Dextrose (D50w Syringe) 50 ml Q15M PRN IV DECREASED GLUCOSE; Start 12/17/16 at 00:30 Glucagon (Glucagen) 1 mg Q15M PRN IM DECREASED GLUCOSE; Start 12/17/16 at 00:30 Glucose (Glutose) 15 gm Q15M PRN BUCCAL DECREASED GLUCOSE; Start 12/17/16 at 00: 30 Aspirin (Halfprin) 81 mg DAILY PO ; Start 12/18/16 at 09:00 Clopidogrel Bisulfate (plaVIX) 75 mg DAILY PO ; Start 12/18/16 at 09:00 Procedures Procedures ECG demonstrates sinus rhythm at 78 bpm, QRS 106 ms, nonspecific STT wave abnormalities Thomas Stoddard DO Dec 17, 2016 15:26
[2016-12-17] MEDS ORDERED: CARV6.2579 PO (15:35)
[2016-12-17] MEDS ORDERED: MAGNESIUM SULFATE 1 GM/D5W 100 ML IVPB ONE (16:00)
--- NOTE | 2016-12-17 17:08 | CONS ---
Date/Time of Note Date/Time of Note DATE: 12/17/16 TIME: 17:06 Assessment/Plan Assessment/Plan Chief Complaint/Hosp Course The patient is a 86 year old male s/p syncope and GLF; he presented with abrasions to the head and face and was evaluated per protocol with a CT of the head and cervical spine. This shows a possible ventral extradural fluid collection, 5mm in thickness in the cervical spine, c/w an epidural hematoma. The patient has no neurologic complaints. Problems: Consultation Date/Type/Reason Admit Date/Time Dec 16, 2016 at 14:23 Initial Consult Date 12/16/16 Type of Consultation: cv 24 HR Interval Summary Free Text/Dictation MRI reviewed, no evidence of hematoma. Radiology report impression is retro C2 pannus. I personally reviewed the images and there is no evidence of cord compression. He remains neurologically intact and may be discharged from the neurosurgical point of view. He may follow up with neurosurgery prn. Exam/Review of Systems Vital Signs Vitals Vital Signs Date Time Temp Pulse Resp B/P Pulse Ox O2 Delivery O2 Flow Rate FiO2 12/17/16 16:12 78 12/17/16 15:15 98.0 18 156/71 96 12/16/16 16:03 Room Air Intake and Output 12/16/16 12/16/16 12/17/16 15:00 23:00 07:00 Intake Total 1000 ml Output Total 375 ml 1200 ml Balance -375 ml -200 ml Results Result Diagram: 12/17/16 0615 12/17/16 0615 Results 24 hrs Laboratory Tests Test 12/17/16 06:15 12/17/16 07:48 12/17/16 12:22 12/17/16 12:31 White Blood Count 8.3 # Red Blood Count 3.83 L Hemoglobin 8.9 L Hematocrit 30.5 L Mean Corpuscular Volume 79.6 L Mean Corpuscular Hemoglobin 23.2 L Mean Corpuscular Hemoglobin Concent 29.2 L Red Cell Distribution Width 17.2 H Platelet Count 227 Mean Platelet Volume 10.8 H Neutrophils % 68.5 Lymphocytes % 17.1 Monocytes % 11.5 H Eosinophils % 2.2 Basophils % 0.5 Nucleated Red Blood Cells % 0.0 Neutrophils # 5.7 Lymphocytes # 1.4 Monocytes # 1.0 H Eosinophils # 0.2 Basophils # 0.0 Nucleated Red Blood Cells # 0.0 Sodium Level 140 Potassium Level 3.7 Chloride Level 104 Carbon Dioxide Level 29 Anion Gap 11 Blood Urea Nitrogen 31 H Creatinine 1.05 Glucose Level 93 Calcium Level 9.0 Bedside Glucose 112 121 Magnesium Level 2.0 Creatine Kinase 196 Creatine Kinase Index 0.5 Creatinine Kinase MB (Mass) 0.97 Troponin I 0.016 Medications Medications Current Medications Ondansetron HCl (Zofran Inj) 4 mg Q6H PRN IV NAUSEA AND/OR VOMITING; Start 12/16 at 22:30 Acetaminophen (Tylenol Tab) 650 mg Q6H PRN PO PAIN LEVEL 1-3 OR FEVER; Start at 22:30 Acetaminophen/ Hydrocodone Bitart ([place] (5/325)) 1 tab Q6H PRN PO PAIN LEVEL 4 -6; Start 12/16/16 at 22:30 Zolpidem Tartrate (Ambien) 5 mg QHS PRN PO INSOMNIA; Start 12/16/16 at 22:30 Docusate Sodium (Colace) 100 mg Q12H PRN PO CONSTIPATION; Start 12/16/16 at 22: 30 Bisacodyl (Dulcolax Supp) 10 mg DAILY PRN [place] CONSTIPATION; Start 12/16/16 at 22: 30 Pantoprazole (Protonix Tab) 40 mg DAILY@06 PO Last administered on 12/17/16 05: 57; Admin Dose 40 MG; Start 12/17/16 at 06:00 Bumetanide (Bumex) 1 mg DAILY PO Last administered on 12/17/16 08:37; Admin Dose 1 MG; Start 12/17/16 at 09:00 Losartan Potassium (Cozaar) 25 mg DAILY PO Last administered on 12/17/16 08:40 ; Admin Dose 25 MG; Start 12/17/16 at 09:00 Albuterol (Ventolin Hfa) 1-2 PUFF Q4H PRN WHEEZING Q4H PRN INH WHEEZING; Start 12/16/16 at 23:45 Diagnostic Test (Pha) (Accu-Chek) 1 ea 02 XX ; Start 12/17/16 at 02:00 Atorvastatin Calcium (Lipitor) 20 mg DAILY@21 PO ; Start 12/17/16 at 21:00 Miscellaneous Information 1 ea NOTE XX ; Start 12/17/16 at 00:30 Glucose (Glutose) 15 gm Q15M PRN PO DECREASED GLUCOSE; Start 12/17/16 at 00:30 Glucose (Glutose) 22.5 gm Q15M PRN PO DECREASED GLUCOSE; Start 12/17/16 at 00:30 Dextrose (D50w Syringe) 25 ml Q15M PRN IV DECREASED GLUCOSE; Start 12/17/16 at 00:30 Dextrose (D50w Syringe) 50 ml Q15M PRN IV DECREASED GLUCOSE; Start 12/17/16 at 00:30 Glucagon (Glucagen) 1 mg Q15M PRN IM DECREASED GLUCOSE; Start 12/17/16 at 00:30 Glucose (Glutose) 15 gm Q15M PRN BUCCAL DECREASED GLUCOSE; Start 12/17/16 at 00: 30 Aspirin (Halfprin) 81 mg DAILY PO ; Start 12/18/16 at 09:00 Clopidogrel Bisulfate (plaVIX) 75 mg DAILY PO ; Start 12/18/16 at 09:00 Carvedilol (Coreg) 6.25 mg BID PO ; Start 12/17/16 at 21:00 TIM TALAMANTES MD Dec 17, 2016 17:08
[2016-12-17] MEDS ORDERED: NON-FORMULARY/PATIENT OWN MED (Pravastatin Sodium* 80 MG) PO SCH (21:00)
[2016-12-17] MEDS ORDERED: ATORVASTATIN 20 MG TAB PO SCH (21:00)
[2016-12-18] MEDS ORDERED: ASPIRIN (EC) 81 MG TAB PO SCH (09:00)
[2016-12-18] MEDS ORDERED: CLOPIDOGREL 75 MG TAB PO SCH (09:00)
== END 2016-12-17 18:05 | disposition home health service (06) | DRG 312 ==
LOC: E/R 11:20 → TEL 14:23
PROVIDERS: ADMIT Internal Medicine; ATTEND Internal Medicine
DX: R55 Syncope and collapse (principal); I47.2 Ventricular tachycardia; I25.5 Ischemic cardiomyopathy; E11.9 Type 2 diabetes mellitus without complications; I11.0 Hypertensive heart disease with heart failure; I50.22 Chronic systolic (congestive) heart failure; I25.10 Atherosclerotic heart disease of native coronary artery without angina pectoris; E78.5 Hyperlipidemia, unspecified; Z95.5 Presence of coronary angioplasty implant and graft; Z87.891 Personal history of nicotine dependence; S62.602A Fracture of unspecified phalanx of right middle finger, initial encounter for closed fracture; L98.8 Other specified disorders of the skin and subcutaneous tissue; E78.00 Pure hypercholesterolemia, unspecified; Z60.2 Problems related to living alone; Z79.02 Long term (current) use of antithrombotics/antiplatelets; Z79.82 Long term (current) use of aspirin; S00.81XA Abrasion of other part of head, initial encounter; W18.30XA Fall on same level, unspecified, initial encounter; Y92.009 Unspecified place in unspecified non-institutional (private) residence as the place of occurrence of the external cause
CPT/HCPCS: 36415; 70450; 71010; 72125; 72141; 72170; 73140; 73630; 80048; 81003; 82550; 82553; 82962; 83735; 84484; 85025; 85610; 85730; 93005; 93306; J1815; J3475; J7030

== ENCOUNTER 2018-04-01 11:21 | Emergency (ER) | END 2018-04-01 16:48 | disposition home or self-care (01) ==

== ENCOUNTER 2018-04-29 14:57 | Observation (INO) | END 2018-04-30 11:19 | disposition home or self-care (01) ==

== ENCOUNTER 2019-01-23 10:01 | Inpatient (IN) | payer OTHER ==
[~2019-01-23] VITALS: Ht 180.3 cm; Wt 66.6 kg
[~2019-01-23 10:01] MED LIST changes: -ALBU8.5H3 INH; +ALBU8.5H8 INH; +ASPI-831 PO; -ASPI81TA3 PO; -BUME1TAB18 PO; -CARV3.1260 PO; +CLOP75TA19 PO; -CLOP75TA4 PO; +LOSA25TA12 PO; -LOSA25TA5 PO; +METF500T3 PO; -METF500T4 PO; +METO-335 PO; -POTA10TA18 PO; -PRAV80TA27 PO; +RSV10T PO
[2019-01-23] MEDS ORDERED: IPRATROPIUM (NEB) 0.5 MG/2.5 ML AMP INH STA (10:20)
[2019-01-23] MEDS ORDERED: ALBUTEROL 0.5% (NEB) 2.5 MG/0.5 ML AMP INH STA (10:20)
[2019-01-23] MEDS ORDERED: METHYLPREDNISOLONE 125 MG INJ IV STA (10:20)
[2019-01-23] MEDS ORDERED: METO-335 PO (11:06)
[2019-01-23] MEDS ORDERED: POTA10TA37 PO (11:07)
[2019-01-23] MEDS ORDERED: RSV10T PO (11:07)
[2019-01-23] MEDS ORDERED: FURO-109 PO (11:08)
[2019-01-23] MEDS ORDERED: ASPI81TA52 PO (11:09)
[2019-01-23] MEDS ORDERED: ACETAMINOPHEN 325 MG TAB PO PRN ×2 (12:30)
[2019-01-23] MEDS ORDERED: ZOLPIDEM 5 MG TAB PO PRN (12:30)
[2019-01-23] MEDS ORDERED: FUROSEMIDE 40 MG INJ IV SCH (12:30)
[2019-01-23] MEDS ORDERED: ONDANSETRON 4 MG INJ IV PRN ×2 (12:30)
--- NOTE | 2019-01-23 13:58 | ERD ---
ER Documentation Chief Complaint Chief Complaint pt is bib friend with c/o sob, cough x 5 days sent by PMD HPI This is a very pleasant 88-year-old male with a known history of COPD and congestive heart failure the presents to the emergency department complaining of shortness of breath for the past 5 days. He states that his symptoms have progressively worsened. He said no fevers or shaking no chills. He has had a productive cough with greenish sputum. He was seen in his primary care physician's office immediately sent to the emergency department to be further evaluated. He has no chest pain or pressure. He denies any hemoptysis hematemesis or melanotic stools. He denies any swelling of his lower extremities. No recent travel. The patient indicates he has not been compliant with his diuretics. ROS All systems reviewed and are negative except as per history of present illness. Medications Home Meds Reported Medications Aspirin (Low Dose Aspirin) 81 Mg Tablet.dr, 81 MG PO DAILY, #30 TAB 01/23/19 Furosemide* (Lasix*) 40 Mg Tablet, 40 MG PO BID, TAB 01/23/19 Potassium Chloride* (K-Dur*) 10 Meq Tab.prt.sr, 20 MEQ PO BID, TAB 01/23/19 Rosuvastatin Calcium* (Crestor*) 10 Mg Tablet, 10 MG PO QHS, #30 TAB 01/23/19 Metoprolol Succinate* (Toprol XL*) 25 Mg Tab.sr.24h, 25 MG PO DAILY, #30 TAB 01/23/19 Losartan Potassium* (Losartan Potassium*) 25 Mg Tablet, 25 MG PO DAILY, TAB 06/07/16 Clopidogrel Bisulfate* (Clopidogrel Bisulfate*) 75 Mg Tablet, 75 MG PO DAILY, TAB 04/11/14 Pantoprazole* (Protonix*) 40 Mg Tablet.dr, 40 MG PO DAILY, TAB 04/11/14 Discontinued Reported Medications Albuterol Sulfate* (Proair HFA*) 8.5 Gm Hfa.aer.ad, 1-2 PUFF INH Q4-6 HOURS PRN for WHEEZING, INH 04/17/14 Discontinued Scripts Furosemide* (Lasix*) 20 Mg Tablet, 30 MG PO DAILY, #45 TAB Prov:LITO FARFAN MD 04/30/18 Metformin* (Glucophage* XR) 500 Mg Tab.sr.24h, 500 MG PO DAILY, #30 TAB Prov:LITO FARFAN MD 04/30/18 Metoprolol Succinate* (Toprol XL*) 25 Mg Tab.sr.24h, 25 MG PO DAILY for 30 Days, #30 Prov:LITO FARFAN MD 04/30/18 Rosuvastatin Calcium* (Crestor*) 10 Mg Tablet, 10 MG PO QHS, #30 TAB Prov:LITO FARFAN MD 04/30/18 Aspirin (Aspirin) 81 Mg Chew, 81 MG PO DAILY, #60 Prov:Thomas Stoddard DO 05/14/14 Allergies Allergies: Coded Allergies: No Known Allergies (Verified Allergy, Mild, 01/23/19) metformin (Verified Adverse Reaction, Intermediate, 01/23/19) Reports problem with Metformin but Glucophage is OK PMhx/Soc History of Surgery: No (STENT PLACEMENT, PACEMAKER/AICD) Anesthesia Reaction: No Hx Neurological Disorder: No Hx Respiratory Disorders: Yes (BRONCHITIS) Hx Cardiac Disorders: Yes (HTN, HIGH CHOLESTEROL) Hx Psychiatric Problems: No Hx Miscellaneous Medical Probl: No Hx Alcohol Use: No Hx Substance Use: No Hx Tobacco Use: No Smoking Status: Never smoker Physical Exam Vitals Vital Signs Date Temp Pulse Resp B/P (MAP) Pulse Ox O2 O2 Flow FiO2 Time Delivery Rate 01/23/19 98.9 89 18 109/69 100 11:30 (82) 01/23/19 2.0 10:30 01/23/19 Nasal 3.0 10:30 Cannula 01/23/19 92 20 97 Nasal 2.0 10:30 Cannula 01/23/19 98.9 107 28 125/72 92 10:04 (89) Physical Exam Constitutional:Well-developed. Well-nourished. Patient in mild respiratory distress HEENT:Normocephalic. Atraumatic.Pupils were equal round reactive to light. Moist mucous membranes.No tonsillar exudates. Neck: No nuchal rigidity. No lymphadenopathy. No posterior cervical spine tenderness or step-offs. Respiratory: Patient unable to speak more than several words at a time. Wheezing on end auscultation bilaterally. Not using accessory muscles of respiration Cardiovascular: Regular rate regular rhythm.No murmurs. No rubs were appreciated.S1, S2 normal. Distal pulses are palpable 2+ bilaterally. GI: Abdomen was soft. Nontender. Non Distended. No pulsatile abdominal masses or bruits. No rebound. No guarding. Bowel sounds were present and normal. Muscle skeletal: Full range of motion of both the upper and lower extremities bilaterally.Normal muscle tone.No assymetrical calf tenderness or swelling. Skin: No petechia, no purpura. No lesions on the palms or the soles of the feet. No maculopapular rash. NEURO: Patient was alert, awake, orientated x3.No facial droop. Gait observed and normal with no ataxia.Speech had regular rate and rhythm. No focal neurological deficits. Result Diagram: 01/23/19 1035 01/23/19 1020 Results 24 hrs Laboratory Tests Test 01/23/19 10:20 01/23/19 10:35 01/23/19 10:50 01/23/19 10:55 Sodium Level 140 mmol/L Potassium Level 3.4 mmol/L Chloride Level 97 mmol/L Carbon Dioxide 34 mmol/L Level Anion Gap 9 Blood Urea 37 mg/dl Nitrogen Creatinine 1.44 mg/dl Est Glomerular mL/min Filtrat Rate mL/min Glucose Level 121 mg/dl Calcium Level 9.3 mg/dl Total Bilirubin 0.8 mg/dl Direct Bilirubin 0.00 mg/dl Indirect 0.8 mg/dl Bilirubin Aspartate Amino 31 IU/L Transf (AST/SGOT) Alanine 26 IU/L Aminotransferase (ALT/SGPT) Alkaline 53 IU/L Phosphatase Creatine Kinase 88 IU/L Creatine Kinase 1.5 Index Creatinine Kinase 1.31 ng/ml MB (Mass) Troponin I 0.042 ng/ml B-Type 5070 PG/ML Natriuretic Peptide Total Protein 8.3 g/dl Albumin 4.3 g/dl Globulin 4.00 g/dl Albumin/Globulin 1.07 Ratio White Blood Count 6.6 10^3/ul Red Blood Count 4.83 10^6/ul Hemoglobin 10.8 g/dl Hematocrit 37.6 % Mean Corpuscular 77.8 fl Volume Mean Corpuscular 22.4 pg Hemoglobin Mean Corpuscular 28.7 g/dl Hemoglobin Concen t Red Cell 17.8 % Distribution Width Platelet Count 228 10^3/UL Mean Platelet 10.7 fl Volume Immature 0.500 % Granulocytes % Neutrophils % 72.1 % Lymphocytes % 12.1 % Monocytes % 12.1 % Eosinophils % 2.7 % Basophils % 0.5 % Nucleated Red 0.0 /100WBC Blood Cells % Immature 0.030 10^3/ul Granulocytes # Neutrophils # 4.8 10^3/ul Lymphocytes # 0.8 10^3/ul Monocytes # 0.8 10^3/ul Eosinophils # 0.2 10^3/ul Basophils # 0.0 10^3/ul Nucleated Red 0.0 10^3/ul Blood Cells # Prothrombin Time 14.4 Sec Prothrombin Time 1.1 Ratio INR International 1.11 Normalized Ratio Activated 26.6 Sec Partial Thrombopl ast Time Urine Color YELLOW Urine Clarity SLIGHTLY CLOUDY Urine pH 6.0 Urine Specific 1.008 [place] Urine Ketones NEGATIVE mg/dL Urine Nitrite NEGATIVE mg/dL Urine Bilirubin NEGATIVE mg/dL Urine NEGATIVE mg/dL Urobilinogen Urine Leukocyte NEGATIVE [place]/ul Esterase Urine Microscopic 0 /HPF RBC Urine Microscopic 0 /HPF WBC Urine Hemoglobin NEGATIVE mg/dL Urine Glucose NEGATIVE mg/dL Urine Total NEGATIVE mg/dl Protein POC Venous 1.1 mmol/L Lactate Current Medications Medications Dose Sig/Gabby Start Time Status Last (Trade) Ordered Route PRN Stop Time Admin Dose Reason Admin Albuterol 10 mg ONCE STAT 01/23/19 DC 01/23/19 (Proventil INH 10:20 10:26 0.5% (Neb)) 01/23/19 10:23 Ipratropium 1 mg ONCE STAT 01/23/19 DC 01/23/19 [place] INH 10:20 10:26 (Atrovent 01/23/19 10:23 0.02% (Neb)) 125 mg ONCE STAT 01/23/19 DC 01/23/19 Methylprednis IV 10:20 11:17 olone Sodium 01/23/19 10:23 Succinate (Solu-Medrol) Ondansetron 4 mg ER BRIDGE 01/23/19 HCl (Zofran PRN IV 12:30 Inj) NAUSEA/VOMITI 01/24/19 12:29 NG 650 mg ER BRIDGE 01/23/19 Acetaminophen PRN PO 12:30 (Tylenol .MILD PAIN 01/24/19 12:29 Tab) 1-3 OR TEMP Furosemide 40 mg BID 01/23/19 (Lasix) DIURETICS 12:30 IV 650 mg Q4 PRN PO 01/23/19 Acetaminophen pain 12:30 (Tylenol Tab) Zolpidem 5 mg HS PRN PO 01/23/19 Tartrate INSOMNIA 12:30 (Ambien) Clopidogrel 75 mg DAILY PO 01/23/19 Bisulfate 12:30 (plaVIX) Metoprolol 25 mg DAILY PO 01/23/19 Succinate 12:30 (Toprol Xl) 40 mg DAILY PO 01/23/19 Pantoprazole 12:30 (Protonix Tab) Potassium 10 meq BID PO 01/23/19 Chloride 12:30 (Klor-Con 10) Ondansetron 4 mg Q6 PRN IV 01/23/19 HCl (Zofran nausea 12:30 Inj) Procedures/MDM The patient presented to the emergency department with shortness of breath. My differential diagnosis included but was not limited to upper airway obstruction, CHF, pulmonary embolism, cardiac ischemia, pneumonia, pneumothorax, anemia, drug overdose, pulmonary edema, COPD or asthma. 12 Lead EKG tracing ordered and reviewed by myself showed: Normal sinus rhythm of 91 bpm and no arrhythmia. CT interval normal. QRS duration normal. No ST segment elevation No ST segment depression. No changes consistent with acute ischemia. I did a chest radiograph which showed no pulmonary edema or infiltrates. However the patient's BNP was elevated at 5000. I did feel the patient's symptoms are a combination of a COPD exacerbation and congestive heart failure. The patient received 125 mg of Solu-Medrol nebulizer treatments with significant improvement of his symptoms. He will be admitted to the [facility] physician Dr. Armstrong with a cardiology consult. Critical Care: Time: 55 minutes Treatments/Evaluations: Close monitoring and treatment of unstable vital signs, cardiorespiratory, and neurologic status, while maintaining tight balance of fluid, respiratory, and cardiac interventions. Time does not include performing any of the above billable procedures. Departure Diagnosis: Primary Impression: CHF (congestive heart failure) Heart failure type: unspecified Heart failure chronicity: acute on chronic Qualified Codes: I50.9 - Heart failure, unspecified Additional Impression: COPD exacerbation Condition: Serious MERYL ROSARIO MD Jan 23, 2019 13:58
[2019-01-23] MEDS: PANTOPRAZOLE (EC) 40 MG TAB PO SCH (14:00)
[2019-01-23] MEDS: METOPROLOL (XL) 25 MG TAB PO SCH (14:00)
[2019-01-23] MEDS: POTASSIUM CHLORIDE (SR) 10 MEQ TAB PO SCH ×2 (14:00→21:46)
[2019-01-23] MEDS: CLOPIDOGREL 75 MG TAB PO SCH (14:00)
--- NOTE | 2019-01-23 14:18 | CONS ---
Assessment/Plan Cardiology NYHA: II Heart Failure Type: Acute on Chronic Heart Failure Type: Systolic Assessment/Plan Hospital Course (Demo Recall) Shortness of breath and productive cough Mild acute decompensated systolic congestive heart failure Possible bronchitis Cardia myopathy CAD Hypertension Acute kidney injury Patient with shortness of breath, productive cough and subjective fevers and chills Chest x-ray with no significant volume overload, BNP is elevated but so was creatinine Likely combination of infectious etiology as well as decompensated congestive heart failure Gentle diuresis with close monitoring of renal function, consider antibiotic therapy, symptoms are also improving with nebulizer Check serial cardiac enzymes, echocardiogram Consultation Date/Type/Reason Admit Date/Time Type of Consult Cardiology Reason for Consultation Shortness of breath and cough Date/Time of Note DATE: 01/23/19 TIME: 14:13 Hx of Present Illness This is an 88-year-old male with past medical history of cardia myopathy status post ICD, hypertension who presents with symptoms of cough and shortness of breath progressing over the past week. Cough is productive with yellow-green sputum. He does also feel more short of breath with coughing and with lying down. He does feel he has mild increased lower extremity edema. He has been compliant with his medications. He does complain of subjective fevers and chills. Denies any current chest pain. Denies dizziness or palpitations. 12 point review of systems was performed with all pertinent positives and negatives mentioned above and all else is negative Past Medical History Medical History: congestive heart failure, coronary artery disease, hypertension Home Meds Reported Medications Aspirin (Low Dose Aspirin) 81 Mg Tablet.dr, 81 MG PO DAILY, #30 TAB 01/23/19 Furosemide* (Lasix*) 40 Mg Tablet, 40 MG PO BID, TAB 01/23/19 Potassium Chloride* (K-Dur*) 10 Meq Tab.prt.sr, 20 MEQ PO BID, TAB 01/23/19 Rosuvastatin Calcium* (Crestor*) 10 Mg Tablet, 10 MG PO QHS, #30 TAB 01/23/19 Metoprolol Succinate* (Toprol XL*) 25 Mg Tab.sr.24h, 25 MG PO DAILY, #30 TAB 01/23/19 Losartan Potassium* (Losartan Potassium*) 25 Mg Tablet, 25 MG PO DAILY, TAB 06/07/16 Clopidogrel Bisulfate* (Clopidogrel Bisulfate*) 75 Mg Tablet, 75 MG PO DAILY, TAB 04/11/14 Pantoprazole* (Protonix*) 40 Mg Tablet.dr, 40 MG PO DAILY, TAB 04/11/14 Discontinued Reported Medications Albuterol Sulfate* (Proair HFA*) 8.5 Gm Hfa.aer.ad, 1-2 PUFF INH Q4-6 HOURS PRN for WHEEZING, INH 04/17/14 Discontinued Scripts Furosemide* (Lasix*) 20 Mg Tablet, 30 MG PO DAILY, #45 TAB Prov:LITO FARFAN MD 04/30/18 Metformin* (Glucophage* XR) 500 Mg Tab.sr.24h, 500 MG PO DAILY, #30 TAB Prov:LITO FARFAN MD 04/30/18 Metoprolol Succinate* (Toprol XL*) 25 Mg Tab.sr.24h, 25 MG PO DAILY for 30 Days, #30 Prov:LITO FARFAN MD 04/30/18 Rosuvastatin Calcium* (Crestor*) 10 Mg Tablet, 10 MG PO QHS, #30 TAB Prov:LITO FARFAN MD 04/30/18 Aspirin (Aspirin) 81 Mg Chew, 81 MG PO DAILY, #60 Prov:Thomas Stoddard DO 05/14/14 Medications Current Medications Ondansetron HCl (Zofran Inj) 4 mg ER BRIDGE PRN IV NAUSEA/VOMITING; Start 01/23/19 at 12:30; Stop 01/24/19 at 12:29 Acetaminophen (Tylenol Tab) 650 mg ER BRIDGE PRN PO .MILD PAIN 1-3 OR TEMP; Start 01/23/19 at 12:30; Stop 01/24/19 at 12:29 Furosemide (Lasix) 40 mg BID DIURETICS IV ; Start 01/23/19 at 12:30 Acetaminophen (Tylenol Tab) 650 mg Q4 PRN PO pain; Start 01/23/19 at 12:30 Zolpidem Tartrate (Ambien) 5 mg HS PRN PO INSOMNIA; Start 01/23/19 at 12:30 Clopidogrel Bisulfate (plaVIX) 75 mg DAILY PO ; Start 01/23/19 at 12:30 Metoprolol Succinate (Toprol Xl) 25 mg DAILY PO ; Start 01/23/19 at 12:30 Pantoprazole (Protonix Tab) 40 mg DAILY PO ; Start 01/23/19 at 12:30 Potassium Chloride (Klor-Con 10) 10 meq BID PO ; Start 01/23/19 at 12:30 Ondansetron HCl (Zofran Inj) 4 mg Q6 PRN IV nausea; Start 01/23/19 at 12:30 Allergies: Coded Allergies: No Known Allergies (Verified Allergy, Mild, 01/23/19) metformin (Verified Adverse Reaction, Intermediate, 01/23/19) Reports problem with Metformin but Glucophage is OK Past Surgical History Past Surgical Hx: angioplasty, other (ICD) Social History Smoking Status: Never smoker Exam/Review of Systems Vital Signs Vitals Vital Signs Date Temp Pulse Resp B/P (MAP) Pulse Ox O2 O2 Flow FiO2 Time Delivery Rate 01/23/19 98.9 89 18 109/69 100 11:30 (82) 01/23/19 2.0 10:30 01/23/19 Nasal 10:30 Cannula Exam Constitutional: alert, oriented (No apparent distress) Head: normocephalic Respiratory: wheezing, other (Coarse breath sounds bilaterally) Cardiovascular: regular rate and rhythm (S1-S2 heard), systolic murmur Gastrointestinal: soft, non-tender, bowel sounds Extremities: edema (Trivial edema) Labs Result Diagram: 01/23/19 1035 01/23/19 1020 Results 24hrs Laboratory Tests Test 01/23/19 10:20 01/23/19 10:35 01/23/19 10:50 01/23/19 10:55 Sodium Level 140 Potassium Level 3.4 L Chloride Level 97 Carbon Dioxide 34 H Level Anion Gap 9 Blood Urea 37 H Nitrogen Creatinine 1.44 H Est Glomerular Filtrat Rate mL/min Glucose Level 121 Calcium Level 9.3 Total Bilirubin 0.8 Direct Bilirubin 0.00 Indirect 0.8 Bilirubin Aspartate Amino 31 Transf (AST/SGOT) Alanine 26 Aminotransferase (ALT/SGPT) Alkaline 53 Phosphatase Creatine Kinase 88 Creatine Kinase 1.5 Index Creatinine Kinase 1.31 MB (Mass) Troponin I 0.042 B-Type 5070 H Natriuretic Peptide Total Protein 8.3 H Albumin 4.3 Globulin 4.00 H Albumin/Globulin 1.07 Ratio White Blood Count 6.6 Red Blood Count 4.83 Hemoglobin 10.8 L Hematocrit 37.6 L Mean Corpuscular 77.8 L Volume Mean Corpuscular 22.4 L Hemoglobin Mean Corpuscular 28.7 L Hemoglobin Concen t Red Cell 17.8 H Distribution Width Platelet Count 228 Mean Platelet 10.7 H Volume Immature 0.500 H Granulocytes % Neutrophils % 72.1 Lymphocytes % 12.1 L Monocytes % 12.1 H Eosinophils % 2.7 Basophils % 0.5 Nucleated Red 0.0 Blood Cells % Immature 0.030 Granulocytes # Neutrophils # 4.8 Lymphocytes # 0.8 Monocytes # 0.8 Eosinophils # 0.2 Basophils # 0.0 Nucleated Red 0.0 Blood Cells # Prothrombin Time 14.4 Prothrombin Time 1.1 Ratio INR International 1.11 Normalized Ratio Activated 26.6 Partial Thrombopl ast Time Urine Color YELLOW Urine Clarity SLIGHTLY CLOUDY A Urine pH 6.0 Urine Specific 1.008 [place] Urine Ketones NEGATIVE Urine Nitrite NEGATIVE Urine Bilirubin NEGATIVE Urine NEGATIVE Urobilinogen Urine Leukocyte NEGATIVE Esterase Urine Microscopic 0 RBC Urine Microscopic 0 WBC Urine Hemoglobin NEGATIVE Urine Glucose NEGATIVE Urine Total NEGATIVE Protein POC Venous 1.1 Lactate Imaging Imaging ECG sinus rhythm at 91 bpm, QRS 116 ms, nonspecific ST abnormalities Medications Medications Current Medications Ondansetron HCl (Zofran Inj) 4 mg ER BRIDGE PRN IV NAUSEA/VOMITING; Start 01/23/19 at 12:30; Stop 01/24/19 at 12:29 Acetaminophen (Tylenol Tab) 650 mg ER BRIDGE PRN PO .MILD PAIN 1-3 OR TEMP; Start 01/23/19 at 12:30; Stop 01/24/19 at 12:29 Furosemide (Lasix) 40 mg BID DIURETICS IV ; Start 01/23/19 at 12:30 Acetaminophen (Tylenol Tab) 650 mg Q4 PRN PO pain; Start 01/23/19 at 12:30 Zolpidem Tartrate (Ambien) 5 mg HS PRN PO INSOMNIA; Start 01/23/19 at 12:30 Clopidogrel Bisulfate (plaVIX) 75 mg DAILY PO ; Start 01/23/19 at 12:30 Metoprolol Succinate (Toprol Xl) 25 mg DAILY PO ; Start 01/23/19 at 12:30 Pantoprazole (Protonix Tab) 40 mg DAILY PO ; Start 01/23/19 at 12:30 Potassium Chloride (Klor-Con 10) 10 meq BID PO ; Start 01/23/19 at 12:30 Ondansetron HCl (Zofran Inj) 4 mg Q6 PRN IV nausea; Start 01/23/19 at 12:30 Thomas Stoddard DO Jan 23, 2019 14:18
[2019-01-23 15:59] VITALS: BP 116/58; PULSE 92; RESP 20
[2019-01-23 16:26] VITALS: Ht 180.3 cm; Wt 66.6 kg
[2019-01-23 19:52] VITALS: BP 120/58; PULSE 91; RESP 20
--- NOTE | 2019-01-23 21:23 | HP ---
DATE OF ADMISSION: 01/23/2019 CHIEF COMPLAINT: Shortness of breath. HISTORY OF PRESENT ILLNESS: This is an 88-year-old male with a history of hypertension and congestiv e heart failure, who presented to emergency room with complaint of shortness of breath and dyspnea on exertion for several days. Initially oxygen saturation was 90% on room air. The patient denies any chest pain. No cough. No fevers or chills. The patient is on Lasix 40 mg twice daily, however, he has not been compliant with taking the Lasix as prescribed. Labs [place] 5070. BUN was 37 and creatinine was 1.44. Chest x-ray was fairly unremarkable. PAST MEDICAL HISTORY: 1. Hypertension. 2. Ischemic cardiomyopathy. 3. History of old myocardial infarction. 4. Hyperlipidemia. MEDICATIONS PRIOR TO ADMISSION: 1. Plavix 75 mg daily. 2. Losartan 25 mg daily. 3. Toprol-XL 25 mg daily. 4. Crestor 10 mg at bedtime. 5. Aspirin 81 mg daily. 6. Lasix 40 mg b.i.d. 7. K-Dur 10 mEq b.i.d. 8. Protonix 40 mg daily. SOCIAL HISTORY: The patient lives at home. He has a durable power=of-disability attorney who was at the [facility] at the time of my visit. He denies tobacco or alcohol use. PHYSICAL EXAMINATION: GENERAL: Well-developed, well-nourished elderly male who is in no apparent distress. VITAL SIGNS: Stable. He is afebrile. HEENT: Extraocular muscles intact. Pupils are equal and reactive to light bilaterally. Sclerae are anicteric. Oropharynx is clear and moist. NECK: Supple, no JVD, no carotid bruits. LUNGS: Bibasilar crackles with diffuse rhonchi. CARDIAC: Regular rate and rhythm. No murmurs, rubs or gallops. ABDOMEN: Soft, nontender, nondistended, normoactive bowel sounds. EXTREMITIES: 2+ pedal edema. NEUROLOGIC: Grossly nonfocal. LABORATORY DATA: CBC is within normal limits. ASSESSMENT: An 88-year-old male with: 1. Acute combined systolic and diastolic congestive heart failure exacerbation. 2. Hypertension. 3. Coronary artery disease, stable. 4. History of old myocardial infarction. PLAN: Place in [facility] [place], IV Lasix 40 mg b.i.d. and monitor his basic metabolic panel, 2D ech o, cardiology consultation was requested. Dictated By: BOSTON SEAY/BRAYAN Conf#: [id number] DID#: [id number]
[2019-01-24] VITALS: BP 115/67; PULSE 96; RESP 20
[2019-01-24 03:48] VITALS: BP 118/61; PULSE 89; RESP 20
[2019-01-24] MEDS ORDERED: FUROSEMIDE 20 MG INJ IV SCH (06:00)
[2019-01-24 08:12] VITALS: BP 134/71; PULSE 108; RESP 19
[2019-01-24] MEDS ORDERED: CLOPIDOGREL 75 MG TAB PO SCH (09:00)
[2019-01-24] MEDS: ASPIRIN 81 MG TAB PO SCH (10:02)
[2019-01-24] MEDS: CLOPIDOGREL 75 MG TAB PO SCH (10:02)
[2019-01-24] MEDS: PANTOPRAZOLE (EC) 40 MG TAB PO SCH (10:02)
[2019-01-24] MEDS: POTASSIUM CHLORIDE (SR) 10 MEQ TAB PO SCH ×2 (10:02→21:19)
[2019-01-24] MEDS: METOPROLOL (XL) 25 MG TAB PO SCH (10:03)
[2019-01-24] MEDS: ALBUTEROL/IPRATROPIUM (NEB) 3 ML AMP HHN PRN ×3 (11:08→21:14)
[2019-01-24 11:21] VITALS: BP 113/64; PULSE 93; RESP 19
--- NOTE | 2019-01-24 11:41 | PN ---
Date/Time of Note Date/Time of Note DATE: 01/24/19 TIME: 11:39 Assessment/Plan VTE Prophylaxis Risk score (from Ns)>0 risk: 3 SCD applied (from Ns): No SCD contraindicated: other Pharmacological prophylaxis: LMWH Lines/Catheters IV Catheter Type (from Nrs): Saline Lock Urinary Cath still in place: No Assessment/Plan Assessment/Plan 1. cards: chf, however appears euvolemic at this time, oliveira lasix to PO (b) cardiomyopathy, titrate meds as tolerated 2. pulm: airways disease, likely this si a sig portion of presentation, start prednisone, and azithro, cont nebs (b) hypoxemia, monitor 3. renal: ckd, creat improved, monitor Result Diagram: 01/23/19 1035 01/24/19 0504 Results 24hrs Laboratory Tests Test 01/24/19 05:04 Sodium Level 140 Potassium Level 3.9 Chloride Level 99 Carbon Dioxide Level 32 H Anion Gap 9 Blood Urea Nitrogen 33 H Creatinine 1.14 Est Glomerular Filtrat Rate mL/min Glucose Level 141 Calcium Level 9.0 Subjective 24 Hr Interval Summary Free Text/Dictation still with sob, some wheeze, no oob, Exam/Review of Systems Exam Vitals Vital Signs Date Temp Pulse Resp B/P (MAP) Pulse Ox O2 O2 Flow FiO2 Time Delivery Rate 01/24/19 97.8 93 19 113/64 98 Nasal 2.0 11:21 (80) Cannula Intake and Output 01/23/19 01/23/19 01/24/19 1515:00 23:00 07:00 IntakeIntake Total 840 ml 120 ml OutputOutput Total 1100 ml 550 ml BalanceBalance -260 ml -430 ml Exam nad, rrr, global wheeze Results Results 24hrs Laboratory Tests Test 01/24/19 05:04 Sodium Level 140 Potassium Level 3.9 Chloride Level 99 Carbon Dioxide Level 32 H Anion Gap 9 Blood Urea Nitrogen 33 H Creatinine 1.14 Est Glomerular Filtrat Rate mL/min Glucose Level 141 Calcium Level 9.0 Medications Medication Current Medications Acetaminophen (Tylenol Tab) 650 mg Q4 PRN PO pain; Start 01/23/19 at 12:30 Zolpidem Tartrate (Ambien) 5 mg HS PRN PO INSOMNIA Last administered on at 01:28; Admin Dose 5 MG; Start 01/23/19 at 12:30 Clopidogrel Bisulfate (plaVIX) 75 mg DAILY PO Last administered on 01/24/19 10:02; Admin Dose 75 MG; Start 01/23/19 at 12:30 Metoprolol Succinate (Toprol Xl) 25 mg DAILY PO Last administered on 01/24/19 10:03; Admin Dose 25 MG; Start 01/23/19 at 12:30 Pantoprazole (Protonix Tab) 40 mg DAILY PO Last administered on 01/24/19 10:02; Admin Dose 40 MG; Start 01/23/19 at 12:30 Potassium Chloride (Klor-Con 10) 10 meq BID PO Last administered on 01/24/19 10:02; Admin Dose 10 MEQ; Start 01/23/19 at 12:30 Ondansetron HCl (Zofran Inj) 4 mg Q6 PRN IV nausea; Start 01/23/19 at 12:30 Furosemide (Lasix) 20 mg BID DIURETICS IV Last administered on 01/24/19 05:11; Admin Dose 20 MG; Start 01/24/19 at 06:00 Aspirin (Aspirin) 81 mg DAILY PO Last administered on 01/24/19 10:02; Admin Dose 81 MG; Start 01/24/19 at 09:00 Albuterol/ Ipratropium (Duoneb) 3 ml Q4H RESP THERAPY PRN HHN SHORTNESS OF BREATH Last administered on 01/24/19 11:08; Admin Dose 3 ML; Start 01/24/19 at 11:00 [employer] MD Jan 24, 2019 11:41
--- NOTE | 2019-01-24 12:47 | RADRPT ---
Echocardiogram Report Patient Name: AQUILES ZUNIGAPatient ID: [id number] : 1930 (88y 4m)Study Date: 01/23/2019 3:41:51 PM Gender: MAccession #: [id number] Tech: Wilian Lombardo [facility] Location: [address] Ref.Physician: BOSTON DAMON Height(Cm): BSA: Weight(Kg): Quality: AdequateOrder Physician: BOSTON DAMON Account #: Procedures: Echocardiographic Report: Transthoracic echocardiogram with complete 2D, M-Mode, and doppler examination. Indications: Evaluate Left Ventricular function. Measurements: 2D/M Mode Doppler Measurement Value Normal Range Measurement Value Normal Range LVIDd 2D 6.3 [ 4.2 - 5.8 ] cm AV Peak Edvin 1.5 [ 100.0 - 170.0 ] cm/sec LVIDs 2D 5.5 [ 2.5 - 4.0 ] cm AV Peak PG 9.0 [ 2.0 - 9.0 ] mmHg LVPWd 2D 1.0 [ 0.6 - 1.0 ] cm LVOT Peak Edvin 0.8 [ 70.0 - 110.0 ] cm/sec IVSd 2D 1.0 [ 0.6 - 1.0 ] cm LVOT Peak PG 2.0 [ 2.0 - 6.0 ] mmHg AoR Diam 2D 2.5 [ 2.6 - 3.4 ] cm MV E Peak Edvin 1.2 [ 60.0 - 130.0 ] cm/sec EDV 2D 200.0 [ 62.0 - 150.0 ] ml MV A Peak Edvin 0.9 [ 100.0 - 120.0 ] cm/sec ESV 2D 146.0 [ 21.0 - 61.0 ] ml MV E/A 1.4 [ 0.8 - 1.5 ] ratio EF 2D 27.0 [ 52.0 - 72.0 ] percent MV Decel Time 173 [ 104 - 258 ] msec LA Dimen 2D 4.7 [ 3.0 - 4.0 ] cm Lat E` Edvin 0.1 [ 10.0 - 15.0 ] cm/sec Lateral E/E` 10.7 [ 1.0 - 2.0 ] ratio Med E` Edvin 0.1 cm/sec MV E/A 1.4 [ 0.8 - 1.5 ] ratio TR Peak Edvin 3.6 [ 100.0 - 280.0 ] cm/sec TR Peak PG 51.0 mmHg RVSP 66.0 [ 10.0 - 36.0 ] mmHg Findings: Left Ventricle: Left ventricular wall thickness upper limits of normal. Mild enlargement of left ventricle cavity. Severe global left ventricular systolic dysfunction. Ejection fraction is visually estimated at 25-30 %. Abnormal Diastolic Function. Right Ventricle: Normal right ventricular size. Normal right ventricular systolic function. Linear artifact in right ventricle suggestive of catheter, pacer lead, or ICD lead. Left Atrium: There is moderate enlargement of left atrium. Right Atrium: There is mild enlargement of right atrium. Mitral Valve: Mild mitral leaflet calcification. Mild mitral annular calcification. Moderate to severe mitral valve regurgitation. The regurgitation jet is eccentrically directed which may underestimate the severity of mitral regurgitation. Aortic Valve: No significant aortic stenosis or insufficiency. Aortic cusps appear mildly calcified. Tricuspid Valve: Normal appearance of the tricuspid valve. The estimated Peak RVSP is 66 mmHg. There is mild tricuspid regurgitation. Pericardium: Normal pericardium with no significant pericardial effusion. Aorta: Normal aortic root. IVC: Dilated IVC without respiratory collapse consistent with elevated right atrial pressure. Conclusions: Left ventricular wall thickness upper limits of normal. Mild enlargement of left ventricle cavity. Severe global left ventricular systolic dysfunction. Ejection fraction is visually estimated at 25-30 %. Abnormal Diastolic Function. Normal right ventricular size. Normal right ventricular systolic function. Linear artifact in right ventricle suggestive of catheter, pacer lead, or ICD lead. There is moderate enlargement of left atrium. There is mild enlargement of right atrium. Mild mitral leaflet calcification. Mild mitral annular calcification. Moderate to severe mitral valve regurgitation. The regurgitation jet is eccentrically directed which may underestimate the severity of mitral regurgitation. Normal appearance of the tricuspid valve. The estimated Peak RVSP is 66 mmHg. There is mild tricuspid regurgitation. Dilated IVC without respiratory collapse consistent with elevated right atrial pressure. Electronically Signed By: Minor Bautista 2019-01-24 12:47:13 PDT
--- NOTE | 2019-01-24 13:00 | CONS ---
Assessment/Plan Cardiology NYHA: II Heart Failure Type: Acute on Chronic Heart Failure Type: Systolic Assessment/Plan Assessment/Plan (Daily) Assessment Shortness of breath and productive cough Mild acute decompensated systolic congestive heart failure Possible bronchitis Cardia myopathy CAD Hypertension Acute kidney injury Plan: continue meds upon dc outpatient CHF clinic recommended Consultation Date/Type/Reason Admit Date/Time Jan 23, 2019 at 12:02 Initial Consult Date Type of Consult Cardiology Date/Time of Note DATE: 01/24/19 TIME: 12:58 24 HR Interval Summary Free Text/Dictation reports sob, but seems comfortable, eating Detailed Summary Respiratory: no complaints Cardiovascular: no complaints Gastrointestinal: no complaints Musculoskeletal: no complaints Skin: no complaints Neurologic: no complaints Exam/Review of Systems Vital Signs Vitals Vital Signs Date Temp Pulse Resp B/P (MAP) Pulse Ox O2 O2 Flow FiO2 Time Delivery Rate 01/24/19 Nasal 2.0 12:37 Cannula 01/24/19 97.8 93 19 113/64 98 11:21 (80) Intake and Output 01/23/19 01/23/19 01/24/19 1515:00 23:00 07:00 IntakeIntake Total 840 ml 120 ml OutputOutput Total 1100 ml 550 ml BalanceBalance -260 ml -430 ml Exam Constitutional: alert, oriented Neck: jvd Respiratory: clear to auscultation Cardiovascular: regular rate and rhythm Gastrointestinal: soft Musculoskeletal: nl extremities to inspection Extremities: normal pulses Labs Result Diagram: 01/23/19 1035 01/24/19 0504 Results 24hrs Laboratory Tests Test 01/24/19 05:04 Sodium Level 140 Potassium Level 3.9 Chloride Level 99 Carbon Dioxide Level 32 H Anion Gap 9 Blood Urea Nitrogen 33 H Creatinine 1.14 Est Glomerular Filtrat Rate mL/min Glucose Level 141 Calcium Level 9.0 Medications Medications Current Medications Acetaminophen (Tylenol Tab) 650 mg Q4 PRN PO pain; Start 01/23/19 at 12:30 Zolpidem Tartrate (Ambien) 5 mg HS PRN PO INSOMNIA Last administered on 01/24/19at 01:28; Admin Dose 5 MG; Start 01/23/19 at 12:30 Clopidogrel Bisulfate (plaVIX) 75 mg DAILY PO Last administered on 01/24/19at 10:02; Admin Dose 75 MG; Start 01/23/19 at 12:30 Metoprolol Succinate (Toprol Xl) 25 mg DAILY PO Last administered on 01/24/19 10:03; Admin Dose 25 MG; Start 01/23/19 at 12:30 Pantoprazole (Protonix Tab) 40 mg DAILY PO Last administered on 01/24/19at 10:02; Admin Dose 40 MG; Start 01/23/19 at 12:30 Potassium Chloride (Klor-Con 10) 10 meq BID PO Last administered on 01/24/19 10:02; Admin Dose 10 MEQ; Start 01/23/19 at 12:30 Ondansetron HCl (Zofran Inj) 4 mg Q6 PRN IV nausea; Start 01/23/19 at 12:30 Aspirin (Aspirin) 81 mg DAILY PO Last administered on 01/24/19 10:02; Admin Dose 81 MG; Start 01/24/19 at 09:00 Albuterol/ Ipratropium (Duoneb) 3 ml Q4H RESP THERAPY PRN HHN SHORTNESS OF BREATH Last administered on 01/24/19 11:08; Admin Dose 3 ML; Start 01/24/19 at 11:00 Prednisone (Prednisone) 40 mg DAILY PO ; Start 01/24/19 at 11:30 Fluticasone Propionate (Flonase 0.05% Nasal) 1 spray BID NASAL ; Start 01/24/19 at 12:00 Furosemide (Lasix) 40 mg DAILY@0600 PO ; Start 01/25/19 at 06:00 Azithromycin (Zithromax) 500 mg DAILY PO ; Start 01/24/19 at 11:30 KEESHA ANNE MD Jan 24, 2019 13:00
[2019-01-24] MEDS: AZITHROMYCIN 250 MG TAB PO SCH (13:05)
[2019-01-24] MEDS: predniSONE 20 MG TAB PO SCH (13:05)
[2019-01-24] MEDS: FLUTICASONE 0.05% 16 GM NAS SPRAY NASAL SCH ×2 (13:06→21:19)
[2019-01-24 16:03] VITALS: BP 112/63; PULSE 86; RESP 22
[2019-01-25 03:49] VITALS: BP 116/72; PULSE 107; RESP 20
[2019-01-25] MEDS ORDERED: FUROSEMIDE 40 MG TAB PO SCH (06:00)
[2019-01-25] MEDS: ALBUTEROL/IPRATROPIUM (NEB) 3 ML AMP HHN PRN ×2 (06:35→15:13)
[2019-01-25 07:36] VITALS: BP 142/87; PULSE 125; RESP 18
[2019-01-25] MEDS: FLUTICASONE 0.05% 16 GM NAS SPRAY NASAL SCH ×2 (08:25→20:17)
[2019-01-25] MEDS: PANTOPRAZOLE (EC) 40 MG TAB PO SCH (08:26)
[2019-01-25] MEDS: predniSONE 20 MG TAB PO SCH (08:26)
[2019-01-25] MEDS: CLOPIDOGREL 75 MG TAB PO SCH (08:26)
[2019-01-25] MEDS: POTASSIUM CHLORIDE (SR) 10 MEQ TAB PO SCH ×2 (08:26→20:17)
[2019-01-25] MEDS: AZITHROMYCIN 250 MG TAB PO SCH (08:26)
[2019-01-25] MEDS: METOPROLOL (XL) 25 MG TAB PO SCH (08:27)
[2019-01-25] MEDS: ASPIRIN 81 MG TAB PO SCH (08:27)
[2019-01-25 11:38] VITALS: BP 112/74; PULSE 99; RESP 17
--- NOTE | 2019-01-25 11:38 | PN ---
Date/Time of Note Date/Time of Note DATE: 01/25/19 TIME: 11:36 Assessment/Plan VTE Prophylaxis Risk score (from Ns)>0 risk: 4 SCD applied (from Ns): Yes Pharmacological prophylaxis: LMWH Lines/Catheters IV Catheter Type (from [facility]): Saline Lock Urinary Cath still in place: No Assessment/Plan Assessment/Plan 1. pulm: airways disease, increase steroid, cont nebs and O2 2. cards: chf, minor componenet? Result Diagram: 01/25/19 0506 01/25/19 0506 Results 24hrs Laboratory Tests Test 01/25/19 05:06 White Blood Count 11.3 #H Red Blood Count 4.44 L Hemoglobin 9.9 L Hematocrit 35.7 L Mean Corpuscular Volume 80.4 L Mean Corpuscular Hemoglobin 22.3 L Mean Corpuscular Hemoglobin Concent 27.7 L Red Cell Distribution Width 17.4 H Platelet Count 221 Mean Platelet Volume 11.0 H Immature Granulocytes % 0.400 Neutrophils % 88.6 H Lymphocytes % 6.4 L Monocytes % 4.5 Eosinophils % 0.0 Basophils % 0.1 Nucleated Red Blood Cells % 0.0 Immature Granulocytes # 0.050 H Neutrophils # 10.0 H Lymphocytes # 0.7 L Monocytes # 0.5 Eosinophils # 0.0 Basophils # 0.0 Nucleated Red Blood Cells # 0.0 Sodium Level 139 Potassium Level 4.3 Chloride Level 99 Carbon Dioxide Level 35 H Anion Gap 5 Blood Urea Nitrogen 33 H Creatinine 1.10 Est Glomerular Filtrat Rate mL/min Glucose Level 140 Calcium Level 9.5 Subjective 24 Hr Interval Summary Free Text/Dictation still with sob, having intermittant episodes Exam/Review of Systems Exam Vitals Vital Signs Date Temp Pulse Resp B/P (MAP) Pulse Ox O2 O2 Flow FiO2 Time Delivery Rate 01/25/19 Nasal 2.0 08:10 Cannula 01/25/19 97.4 125 18 142/87 96 07:36 (105) Intake and Output 01/24/19 01/24/19 01/25/19 1515:00 23:00 07:00 IntakeIntake Total 150 ml 500 ml 550 ml OutputOutput Total 350 ml 730 ml BalanceBalance -200 ml 500 ml -180 ml Exam nad, using O2, diffuse wheeze Results Results 24hrs Laboratory Tests Test 01/25/19 05:06 White Blood Count 11.3 #H Red Blood Count 4.44 L Hemoglobin 9.9 L Hematocrit 35.7 L Mean Corpuscular Volume 80.4 L Mean Corpuscular Hemoglobin 22.3 L Mean Corpuscular Hemoglobin Concent 27.7 L Red Cell Distribution Width 17.4 H Platelet Count 221 Mean Platelet Volume 11.0 H Immature Granulocytes % 0.400 Neutrophils % 88.6 H Lymphocytes % 6.4 L Monocytes % 4.5 Eosinophils % 0.0 Basophils % 0.1 Nucleated Red Blood Cells % 0.0 Immature Granulocytes # 0.050 H Neutrophils # 10.0 H Lymphocytes # 0.7 L Monocytes # 0.5 Eosinophils # 0.0 Basophils # 0.0 Nucleated Red Blood Cells # 0.0 Sodium Level 139 Potassium Level 4.3 Chloride Level 99 Carbon Dioxide Level 35 H Anion Gap 5 Blood Urea Nitrogen 33 H Creatinine 1.10 Est Glomerular Filtrat Rate mL/min Glucose Level 140 Calcium Level 9.5 Medications Medication Current Medications Acetaminophen (Tylenol Tab) 650 mg Q4 PRN PO pain; Start 01/23/19 at 12:30 Zolpidem Tartrate (Ambien) 5 mg HS PRN PO INSOMNIA Last administered on 01/24/19 01:28; Admin Dose 5 MG; Start 01/23/19 at 12:30 Clopidogrel Bisulfate (plaVIX) 75 mg DAILY PO Last administered on 01/25/19 08:26; Admin Dose 75 MG; Start 01/23/19 at 12:30 Metoprolol Succinate (Toprol Xl) 25 mg DAILY PO Last administered on 01/25/19 08:27; Admin Dose 25 MG; Start 01/23/19 at 12:30 Pantoprazole (Protonix Tab) 40 mg DAILY PO Last administered on 01/25/19 08:26; Admin Dose 40 MG; Start 01/23/19 at 12:30 Potassium Chloride (Klor-Con 10) 10 meq BID PO Last administered on 01/25/19 08:26; Admin Dose 10 MEQ; Start 01/23/19 at 12:30 Ondansetron HCl (Zofran Inj) 4 mg Q6 PRN IV nausea; Start 01/23/19 at 12:30 Aspirin (Aspirin) 81 mg DAILY PO Last administered on 01/25/19 08:27; Admin Dose 81 MG; Start 01/24/19 at 09:00 Albuterol/ Ipratropium (Duoneb) 3 ml Q4H RESP THERAPY PRN HHN SHORTNESS OF BREATH Last administered on 01/25/19 06:35; Admin Dose 3 ML; Start 01/24/19 at 11:00 Prednisone (Prednisone) 40 mg DAILY PO Last administered on 01/25/19 08:26; Admin Dose 40 MG; Start 01/24/19 at 11:30 Fluticasone Propionate (Flonase 0.05% Nasal) 1 spray BID NASAL Last administered on 01/25/19 08:25; Admin Dose 1 SPRAY; Start 01/24/19 at 12:00 Furosemide (Lasix) 40 mg DAILY@0600 PO Last administered on 01/25/19 06:11; Admin Dose 40 MG; Start 01/25/19 at 06:00 Azithromycin (Zithromax) 500 mg DAILY PO Last administered on 01/25/19 08:26; Admin Dose 500 MG; Start 01/24/19 at 11:30 [employer] MD Jan 25, 2019 11:38
[2019-01-25] MEDS: METHYLPREDNISOLONE 125 MG INJ IV SCH ×2 (13:09→20:17)
--- NOTE | 2019-01-25 14:51 | CONS ---
Assessment/Plan Cardiology NYHA: II Heart Failure Type: Acute on Chronic Heart Failure Type: Systolic Assessment/Plan Hospital Course (Demo Recall) Shortness of breath and productive cough Mild acute decompensated systolic congestive heart failure Possible bronchitis Cardia myopathy Mitral valve regurgitation CAD Hypertension Acute kidney injury-improved Patient with shortness of breath, productive cough and subjective fevers and chills Likely combination of infectious etiology as well as decompensated congestive heart failure Gentle diuresis with close monitoring of renal function, increased dose of beta- kendell, chest x-ray and BNP in the a.m. If renal function continues to improve, would start JA inhibitor given mitral valve regurgitation Consultation Date/Type/Reason Admit Date/Time Jan 25, 2019 at 12:31 Initial Consult Date Type of Consult Cardiology Date/Time of Note DATE: 01/25/19 TIME: 14:49 24 HR Interval Summary Free Text/Dictation Shortness of breath slightly better but still present. Still with wheezing Exam/Review of Systems Vital Signs Vitals Vital Signs Date Temp Pulse Resp B/P (MAP) Pulse Ox O2 O2 Flow FiO2 Time Delivery Rate 01/25/19 97.4 99 17 112/74 97 11:38 (87) 01/25/19 Nasal 2.0 08:10 Cannula Intake and Output 01/24/19 01/24/19 01/25/19 1515:00 23:00 07:00 IntakeIntake Total 150 ml 500 ml 550 ml OutputOutput Total 350 ml 730 ml BalanceBalance -200 ml 500 ml -180 ml Exam Constitutional: alert, oriented (No apparent distress) Head: normocephalic Respiratory: congested cough, crackles/rales, wheezing Cardiovascular: regular rate and rhythm (S1-S2 heard) Gastrointestinal: soft, non-tender, bowel sounds Extremities: edema (Trace) Labs Result Diagram: 01/25/19 0506 01/25/19 0506 Results 24hrs Laboratory Tests Test 01/25/19 05:06 White Blood Count 11.3 #H Red Blood Count 4.44 L Hemoglobin 9.9 L Hematocrit 35.7 L Mean Corpuscular Volume 80.4 L Mean Corpuscular Hemoglobin 22.3 L Mean Corpuscular Hemoglobin Concent 27.7 L Red Cell Distribution Width 17.4 H Platelet Count 221 Mean Platelet Volume 11.0 H Immature Granulocytes % 0.400 Neutrophils % 88.6 H Lymphocytes % 6.4 L Monocytes % 4.5 Eosinophils % 0.0 Basophils % 0.1 Nucleated Red Blood Cells % 0.0 Immature Granulocytes # 0.050 H Neutrophils # 10.0 H Lymphocytes # 0.7 L Monocytes # 0.5 Eosinophils # 0.0 Basophils # 0.0 Nucleated Red Blood Cells # 0.0 Sodium Level 139 Potassium Level 4.3 Chloride Level 99 Carbon Dioxide Level 35 H Anion Gap 5 Blood Urea Nitrogen 33 H Creatinine 1.10 Est Glomerular Filtrat Rate mL/min Glucose Level 140 Calcium Level 9.5 Medications Medications Current Medications Acetaminophen (Tylenol Tab) 650 mg Q4 PRN PO pain; Start 01/23/19 at 12:30 Zolpidem Tartrate (Ambien) 5 mg HS PRN PO INSOMNIA Last administered on 01/24/19 01:28; Admin Dose 5 MG; Start 01/23/19 at 12:30 Clopidogrel Bisulfate (plaVIX) 75 mg DAILY PO Last administered on 01/25/19 08:26; Admin Dose 75 MG; Start 01/23/19 at 12:30 Pantoprazole (Protonix Tab) 40 mg DAILY PO Last administered on 01/25/19 08:26; Admin Dose 40 MG; Start 01/23/19 at 12:30 Potassium Chloride (Klor-Con 10) 10 meq BID PO Last administered on 01/25/19 08:26; Admin Dose 10 MEQ; Start 01/23/19 at 12:30 Ondansetron HCl (Zofran Inj) 4 mg Q6 PRN IV nausea; Start 01/23/19 at 12:30 Aspirin (Aspirin) 81 mg DAILY PO Last administered on 01/25/19 08:27; Admin D ose 81 MG; Start 01/24/19 at 09:00 Albuterol/ Ipratropium (Duoneb) 3 ml Q4H RESP THERAPY PRN HHN SHORTNESS OF BREATH Last administered on 01/25/19 06:35; Admin Dose 3 ML; Start 01/24/19 at 11:00 Fluticasone Propionate (Flonase 0.05% Nasal) 1 spray BID NASAL Last administered on 01/25/19 08:25; Admin Dose 1 SPRAY; Start 01/24/19 at 12:00 Furosemide (Lasix) 40 mg DAILY@0600 PO Last administered on 7/14/19at 06:11; Admin Dose 40 MG; Start 01/25/19 at 06:00 Azithromycin (Zithromax) 500 mg DAILY PO Last administered on 01/25/19at 08:26; Admin Dose 500 MG; Start 01/24/19 at 11:30 Metoprolol Succinate (Toprol Xl) 50 mg DAILY PO ; Start 01/26/19 at 09:00 Methylprednisolone Sodium Succinate (Solu-Medrol) 60 mg Q8H IV Last administered on 01/25/19at 13:09; Admin Dose 60 MG; Start 01/25/19 at 12:00 Thomas Stoddard DO Jan 25, 2019 14:51
[2019-01-25 15:34] VITALS: BP 115/66; PULSE 100; RESP 18
[2019-01-25] MEDS: FUROSEMIDE 20 MG INJ IV SCH (18:26)
[2019-01-25 19:40] VITALS: BP 135/76; PULSE 110; RESP 20
[2019-01-25 23:49] VITALS: BP 114/62; PULSE 75; RESP 18
[2019-01-26 03:13] VITALS: BP 113/63; PULSE 74; RESP 20
[2019-01-26] MEDS: METHYLPREDNISOLONE 125 MG INJ IV SCH (03:40)
[2019-01-26] MEDS: FUROSEMIDE 20 MG INJ IV SCH ×2 (05:20→17:02)
[2019-01-26 07:17] VITALS: BP 114/65; PULSE 86; RESP 18
[2019-01-26] MEDS: FLUTICASONE 0.05% 16 GM NAS SPRAY NASAL SCH (08:18)
[2019-01-26] MEDS: PANTOPRAZOLE (EC) 40 MG TAB PO SCH (08:19)
[2019-01-26] MEDS: ASPIRIN 81 MG TAB PO SCH (08:19)
[2019-01-26] MEDS: CLOPIDOGREL 75 MG TAB PO SCH (08:20)
[2019-01-26] MEDS: POTASSIUM CHLORIDE (SR) 10 MEQ TAB PO SCH (08:20)
[2019-01-26] MEDS: AZITHROMYCIN 250 MG TAB PO SCH (08:20)
[2019-01-26] MEDS ORDERED: METOPROLOL (XL) 50 MG TAB PO SCH ×2 (09:00)
[2019-01-26 11:16] VITALS: BP 109/66; PULSE 94; RESP 17
--- NOTE | 2019-01-26 11:17 | PN ---
Date/Time of Note Date/Time of Note DATE: 01/26/19 TIME: 11:15 Subjective Has productive cough of green sputum. No chest pain Objective Vitals Vital Signs Date Temp Pulse Resp B/P (MAP) Pulse Ox O2 O2 Flow FiO2 Time Delivery Rate 01/26/19 Nasal 2.0 10:43 Cannula 01/26/19 98.2 86 18 114/65 97 07:17 (81) Intake and Output 01/25/19 01/25/19 01/26/19 1515:00 23:00 07:00 IntakeIntake Total 550 ml 860 ml 300 ml OutputOutput Total 200 ml 300 ml 1200 ml BalanceBalance 350 ml 560 ml -900 ml Clear to auscultation bilaterally Regular rate and rhythm Soft nontender nondistended normoactive bowel sounds No edema Nonfocal Results Result Diagram: 01/25/19 0506 01/25/19 0506 Medications Medications Current Medications Acetaminophen (Tylenol Tab) 650 mg Q4 PRN PO pain; Start 01/23/19 at 12:30 Zolpidem Tartrate (Ambien) 5 mg HS PRN PO INSOMNIA Last administered on 01/24/19at 01:28; Admin Dose 5 MG; Start 01/23/19 at 12:30 Clopidogrel Bisulfate (plaVIX) 75 mg DAILY PO Last administered on 01/26/19at 08:20; Admin Dose 75 MG; Start 01/23/19 at 12:30 Pantoprazole (Protonix Tab) 40 mg DAILY PO Last administered on 01/26/19at 08:19; Admin Dose 40 MG; Start 01/23/19 at 12:30 Potassium Chloride (Klor-Con 10) 10 meq BID PO Last administered on 01/26/19at 08:20; Admin Dose 10 MEQ; Start 01/23/19 at 12:30 Ondansetron HCl (Zofran Inj) 4 mg Q6 PRN IV nausea; Start 01/23/19 at 12:30 Aspirin (Aspirin) 81 mg DAILY PO Last administered on 01/26/19at 08:19; Admin Dose 81 MG; Start 01/24/19 at 09:00 Albuterol/ Ipratropium (Duoneb) 3 ml Q4H RESP THERAPY PRN HHN SHORTNESS OF BREATH Last administered on 01/25/19at 15:13; Admin Dose 3 ML; Start 01/24/19 at 11:00 Fluticasone Propionate (Flonase 0.05% Nasal) 1 spray BID NASAL Last administered on 01/26/19 08:18; Admin Dose 1 SPRAY; Start 01/24/19 at 12:00 Azithromycin (Zithromax) 500 mg DAILY PO Last administered on 01/26/19 08:20; Admin Dose 500 MG; Start 01/24/19 at 11:30 Methylprednisolone Sodium Succinate (Solu-Medrol) 60 mg Q8H IV Last administered on 01/26/19at 03:40; Admin Dose 60 MG; Start 01/25/19 at 12:00 Metoprolol Succinate (Toprol Xl) 50 mg BID PO Last administered on 01/26/19 08:20; Admin Dose 50 MG; Start 01/26/19 at 09:00 Furosemide (Lasix) 20 mg BID DIURETICS IV Last administered on 01/26/19at 05:20; Admin Dose 20 MG; Start 01/25/19 at 18:00 VTE Prophylaxis Risk score (from Ns)>0 risk: 4 SCD applied (from Ns): Yes Lines/Catheters IV Catheter Type: Saline Lock Vega in Place: No Assessment/Plan Assessment/Plan 88-year-old male with acute systolic congestive heart failure exacerbation, improving 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 with home O2 Cardiology follow-up BOSTON DAMON MD Jan 26, 2019 11:17
[2019-01-26] MEDS ORDERED: LISINOPRIL 5 MG TAB PO SCH (11:30)
[2019-01-26] MEDS ORDERED: FLUT16SP17 NASAL (11:50)
[2019-01-26] MEDS ORDERED: METO-319 PO (11:50)
[2019-01-26] MEDS ORDERED: LISI-313 PO (11:50)
[2019-01-26] MEDS ORDERED: POTA10TA37 PO (11:50)
--- NOTE | 2019-01-26 11:51 | PDOCDIS ---
Discharge Instructions CONDITION [id number] Patient Condition: [id number] Good HOME CARE INSTRUCTIONS: [id number] Diet Instructions: [id number] FOLLOW UP/APPOINTMENTS Follow-up Plan pcp [address] Stoddard 1 week BOSTON DAMON MD Jan 26, 2019 11:51
[2019-01-26] MEDS ORDERED: AZIT250T13 PO (11:52)
[2019-01-26 16:06] VITALS: BP 129/56; PULSE 84; RESP 18
--- NOTE | 2019-01-26 18:53 | CONS ---
Assessment/Plan Cardiology NYHA: II Heart Failure Type: Acute on Chronic Heart Failure Type: Systolic Assessment/Plan Hospital Course (Demo Recall) Shortness of breath and productive cough Mild acute decompensated systolic congestive heart failure Possible bronchitis Cardia myopathy Mitral valve regurgitation CAD Hypertension Acute kidney injury-improved Patient with shortness of breath, productive cough and subjective fevers and chills Likely combination of infectious etiology as well as decompensated congestive heart failure Gentle diuresis with close monitoring of renal function with plan of switching to po Would start JA inhibitor given mitral valve regurgitation Consultation Date/Type/Reason Admit Date/Time Jan 25, 2019 at 12:31 Initial Consult Date Type of Consult Cardiology Date/Time of Note DATE: 01/26/19 TIME: 18:51 24 HR Interval Summary Free Text/Dictation sob is better, less wheezing Exam/Review of Systems Vital Signs Vitals Vital Signs Date Temp Pulse Resp B/P (MAP) Pulse Ox O2 O2 Flow FiO2 Time Delivery Rate 01/26/19 2.0 17:37 01/26/19 98.4 84 18 129/56 97 16:06 (80) 01/26/19 Room Air 11:58 Intake and Output 01/25/19 01/25/19 01/26/19 1515:00 23:00 07:00 IntakeIntake Total 550 ml 860 ml 300 ml OutputOutput Total 200 ml 300 ml 1200 ml BalanceBalance 350 ml 560 ml -900 ml Exam Constitutional: alert, oriented Head: normocephalic Respiratory: other Cardiovascular: regular rate and rhythm Gastrointestinal: soft, non-tender, bowel sounds Extremities: edema (no) Labs Result Diagram: 01/25/19 0506 01/25/19 0506 Results 24hrs Laboratory Tests Test 01/26/19 04:50 B-Type Natriuretic Peptide 7530 H Medications Medications Current Medications Acetaminophen (Tylenol Tab) 650 mg Q4 PRN PO pain; Start 01/23/19 at 12:30 Zolpidem Tartrate (Ambien) 5 mg HS PRN PO INSOMNIA Last administered on 01/24/19at 01:28; Admin Dose 5 MG; Start 01/23/19 at 12:30 Clopidogrel Bisulfate (plaVIX) 75 mg DAILY PO Last administered on 01/26/19at 08:20; Admin Dose 75 MG; Start 01/23/19 at 12:30 Pantoprazole (Protonix Tab) 40 mg DAILY PO Last administered on 01/26/19 08:19; Admin Dose 40 MG; Start 01/23/19 at 12:30 Potassium Chloride (Klor-Con 10) 10 meq BID PO Last administered on 01/26/19 08:20; Admin Dose 10 MEQ; Start 01/23/19 at 12:30 Ondansetron HCl (Zofran Inj) 4 mg Q6 PRN IV nausea; Start 01/23/19 at 12:30 Aspirin (Aspirin) 81 mg DAILY PO Last administered on 01/26/19 08:19; Admin Dose 81 MG; Start 01/24/19 at 09:00 Albuterol/ Ipratropium (Duoneb) 3 ml Q4H RESP THERAPY PRN HHN SHORTNESS OF BREATH Last administered on 01/25/19 15:13; Admin Dose 3 ML; Start 01/24/19 at 11:00 Fluticasone Propionate (Flonase 0.05% Nasal) 1 spray BID NASAL Last administered on 01/26/19 08:18; Admin Dose 1 SPRAY; Start 01/24/19 at 12:00 Azithromycin (Zithromax) 500 mg DAILY PO Last administered on 01/26/19 08:20; Admin Dose 500 MG; Start 01/24/19 at 11:30 Metoprolol Succinate (Toprol Xl) 50 mg BID PO Last administered on 01/26/19 08:20; Admin Dose 50 MG; Start 01/26/19 at 09:00 Furosemide (Lasix) 20 mg BID DIURETICS IV Last administered on 01/26/19 17:02; Admin Dose 20 MG; Start 01/25/19 at 18:00 Lisinopril (Zestril) 5 mg DAILY PO Last administered on 01/26/19 12:06; Admin Dose 5 MG; Start 01/26/19 at 11:30 Thomas Stoddard DO Jan 26, 2019 18:53
[2019-01-26 19:12] VITALS: BP 118/65; PULSE 87; RESP 18
== END 2019-01-26 20:01 | DRG 292 ==
LOC: E/R 10:01 → 6WM 12:02 → INTOOBSV 12:02 → OBSVTOIN 01-25 12:31
PROVIDERS: ADMIT Internal Medicine; ATTEND Internal Medicine
DX: I11.0 Hypertensive heart disease with heart failure (principal); N17.9 Acute kidney failure, unspecified; I50.43 Acute on chronic combined systolic (congestive) and diastolic (congestive) heart failure; I25.10 Atherosclerotic heart disease of native coronary artery without angina pectoris; Z95.810 Presence of automatic (implantable) cardiac defibrillator; I25.5 Ischemic cardiomyopathy; E78.5 Hyperlipidemia, unspecified; I25.2 Old myocardial infarction; I34.0 Nonrheumatic mitral (valve) insufficiency; J20.9 Acute bronchitis, unspecified
CPT/HCPCS: 71045; 80048; 80053; 81001; 81003; 82550; 82553; 83605; 83880; 84484; 85025; 85610; 85730; 87086; 93005; 93306; 94640; 94644; 94664; 96374; 99217; G0378; J1940; J2930; J7512